=== PATIENT | male | born 1950 | race African-American/Black ===

== ENCOUNTER 2018-03-18 01:03 | Inpatient (IN) | payer MEDICARE, BC, MEDICAID ==
--- NOTE | 2018-03-18 01:09 | ED Physician Chart ---
ED Chief Complaint/HPI - Patient Information Date Seen:: 03/18/18 Time Seen:: 01:09 Chief Complaint:: Pneumonia History of Present Illness:: 67 yo male was brought from [facility] to ER for evaluation of cough for 1 day. His CXR on 03/17/18 showed increased density in the right lung base. Patient had history of stroke and has a tracheostomy tube to T bar. ED Review of Systems - Review of Systems General/Constitutional: No fever Skin: No bruising Head: No headache Eyes: No pain ENT: No nasal drainage Neck: Neck pain, No swelling, Other (tracheostomy tube) Cardio Vascular: No palpitations Pulmonary: SOB, Cough GI: No nausea, No vomiting Musculoskeletal: Other (atrophy) Neurological: Focal symptoms, Weakness ED Past Medical History - Past Medical History Past Medical History: HTN, DM, CVA/TIA, Dyslipidemia, Other (RESPIRATORY FAILURE , ESBL UTI, DYSPHAGIA) Social History: Non Smoker, No Alcohol, No Drug Use Surgical History: PEG/GTube, other (Tracheostomy tube) Family Medical History - Family Member Mother History Unknown: Yes ED Physical Exam - Physical Examination General/Constitutional: Awake Head: Atraumatic Eyes: PERRL Skin: No ecchymosis ENMT: Nasal exam nl Other Neck comments:: Trach tube intact Other Respiratory comments:: RLL crackles Cardio Vascular: RRR, No murmur, gallop, rubs, NL S1 S2 Other GI comments:: G-tube intact Other Extremities comments:: Contractures of upper and lower extremities Other Neuro/Psych comments:: Unable to follow command ED Labs/Radiology/EKG Results - Radiology Results Results: CXR: diffuse interstitial infiltrates, right greater than left ED Assessment - Assessment General Assessment: Acute on chronic respiratory failure Pneumonia UTI Leukocytosis Hyponatremia Normocytic anemia Pre-renal azotemia Metabolic alkalosis Assessment/Comments:: CBC, CMP, UA CXR and EKG NS 1L IV bolus Rocephin IV Azithromycin IV Breathing treatment Admit to telemetry ED Septic Shock - . Is Septic Shock (SBP<90, OR Lactate>4 mmol\L) present?: No ED Reassessment (Disposition) - Reassessment Reassessment Condition:: Improved - Patient Disposition Discharge/Transfer:: Acute Care w/in this hosp Admitting Medical Physician:: Lilli Rogers
[2018-03-18 01:28] LABS: pH 7.48 (7.35-7.45)
[2018-03-18 01:29] LABS: ALLEN TEST Positive
[2018-03-18 01:50] LABS: URINE MICROSCOPIC INDICATED? YES; URINE SOURCE CATH
[2018-03-18 01:55] LABS: HEMATOCRIT 35.3 % (41.0-60); HEMOGLOBIN 11.9 gm/dL (12-16); MEAN CELL VOLUME 84.9 fl (80-99); MEAN CORPUSCULAR HEMOGLOBIN 28.6 pg (27.0-31.0); MEAN CORPUSCULAR HGB CONC 33.6 pg (28.0-36.0); MEAN PLATELET VOLUME 9.6 fl; PLATELET COUNT 263 Th/cmm (150-400); RED BLOOD COUNT 4.16 Mil/cmm (3.80-5.80); RED CELL DISTRIBUTION WIDTH 16.2 % (11.5-20.0)
[2018-03-18 02:02] LABS: WHITE BLOOD COUNT 15.2 Th/cmm (4.8-10.8)
[2018-03-18 02:05] LABS: URINE BILIRUBIN NEGATIVE (NEGATIVE); URINE BLOOD NEGATIVE (NEGATIVE); URINE GLUCOSE (UA) NEGATIVE (NEGATIVE); URINE KETONE NEGATIVE (NEGATIVE); URINE LEUKOCYTE ESTERASE SMALL (NEGATIVE); URINE NITRATE NEGATIVE (NEGATIVE); URINE PH 7.5 (4.6 - 8.0); URINE PROTEIN 100 mg/dL (NEGATIVE); URINE UROBILINOGEN 0.2 E.U./dL (0.2 - 1.0)
[2018-03-18] MEDS ORDERED: Sodium Chloride 0.9% 1,000 ML IV ONE ×2 (02:05→03:15)
[2018-03-18 02:14] LABS: ALB/GLOB RATIO 0.9 (1.0-1.8); ALBUMIN 3.6 gm/dL (4.2-5.5); ANION GAP 17.2 (7.0-16.0); BILIRUBIN,TOTAL 0.5 mg/dL (0.3-1.0); CALCIUM SERUM 9.6 mg/dL (8.6-10.3); CARBON DIOXIDE 22.9 mEq/L (21.0-31.0); CREATININE - SERUM 2.1 mg/dL (0.7-1.3); GFR AFRICAN-AMERICAN 40.5 ml/min (>90); GFR NON AFRICAN-AMERICAN 33.4 ml/min; POTASSIUM SERUM 5.1 mEq/L (3.5-5.1); TOTAL PROTEIN,SERUM 7.6 gm/dL (6.0-8.3)
[2018-03-18 02:15] LABS: URINE CLARITY HAZY (CLEAR); URINE COLOR YELLOW
[2018-03-18 02:16] LABS: URINE BACTERIA MODERATE /hpf (NONE SEEN); URINE EPITHELIAL CELLS RARE /lpf (FEW); URINE RBC 0-2 /hpf (0-5)
[2018-03-18] MEDS ORDERED: Azithromycin 500 MG in Sodium Chloride 0.9% 250 ML IV ONE (02:30)
[2018-03-18] MEDS ORDERED: cefTRIAXone 1 GM in Sodium Chloride 0.9% 50 ML IV ONE (02:30)
[2018-03-18] MEDS ORDERED: Sodium Chloride 0.9% 500 ML IV ONE ×3 (03:15→18:30)
[2018-03-18 04:16] LABS: BAND NEUTROPHILE 39 % (0-10); LYMPHOCYTE 11 % (20-50); MONOCYTE 4 % (2-10); NEUTROPHILS 46 % (40-80); PLATELET ESTIMATE ADEQUATE (NORMAL)
[2018-03-18 05:21] LABS: MEAN PLATELET VOLUME 9.2 fl
[2018-03-18 05:23] LABS: MEAN CELL VOLUME 85.6 fl (80-99); MEAN CORPUSCULAR HEMOGLOBIN 29.1 pg (27.0-31.0); PLATELET COUNT 243 Th/cmm (150-400); RED BLOOD COUNT 3.44 Mil/cmm (3.80-5.80); RED CELL DISTRIBUTION WIDTH 15.7 % (11.5-20.0)
[2018-03-18 05:26] LABS: WHITE BLOOD COUNT 15.9 Th/cmm (4.8-10.8)
[2018-03-18 05:54] LABS: ANION GAP 14.4 (7.0-16.0); CALCIUM SERUM 8.6 mg/dL (8.6-10.3); CREATININE - SERUM 1.7 mg/dL (0.7-1.3); GFR AFRICAN-AMERICAN 51.7 ml/min (>90); GFR NON AFRICAN-AMERICAN 42.7 ml/min; POTASSIUM SERUM 4.4 mEq/L (3.5-5.1)
[2018-03-18 05:59] LABS: BAND NEUTROPHILE 37 % (0-10); LYMPHOCYTE 6 % (20-50); MONOCYTE 3 % (2-10); NEUTROPHILS 54 % (40-80)
[2018-03-18 06:00] LABS: HEMATOCRIT 29.5 % (41.0-60)
[2018-03-18] MEDS ORDERED: Ipratropium Neb 0.5 mg/2.5 mL UD HHN PRN (07:56)
[2018-03-18] MEDS ORDERED: Albuterol Nebulizer 2.5mg/3mL HHN PRN (07:56)
--- NOTE | 2018-03-18 08:29 | Diagnostic Imaging Report ---
CHEST X-RAY: AP view INDICATION: Shortness of breath COMPARISON: None FINDINGS: Tracheostomy tube is noted. Diffuse interstitial infiltrates are noted right greater than left. Heart size is normal. No pleural effusions. Atherosclerosis is noted. The osseous structures are intact. IMPRESSION: Diffuse interstitial infiltrates, right greater than left. Follow-up recommended. Atherosclerotic vascular disease.
[2018-03-18 08:31] VITALS: BP 118/60
[2018-03-18] MEDS: Multivitamin w/ Minerals Tab GT SCH (10:39)
[2018-03-18] MEDS: Pantoprazole 40 mg EC Tab PO SCH (10:41)
[2018-03-18] MEDS: Prednisolone 1% Ophth Susp 5 mL Bottle EACH EYE SCH ×4 (10:42→21:33)
[2018-03-18] MEDS: INSULIN ASPART SLIDING SCALE 100 UNITS/ML UNIT SUBQ SCH ×2 (12:32→17:43)
[2018-03-18] MEDS: Albuterol Nebulizer 2.5mg/3mL HHN SCH ×2 (12:59→18:38)
[2018-03-18] MEDS: Ipratropium Neb 0.5 mg/2.5 mL UD HHN SCH ×2 (12:59→18:38)
[2018-03-18] MEDS: Levofloxacin 750mg/150mL 750 MG/150 ML BAG IV SCH (16:23)
--- NOTE | 2018-03-18 17:38 | History & Physical ---
ADMIT DATE: 03/18/2018 The patient is a resident of [facility]. Apparently, the patient was short of breath. The patient is status post trach and PEG and the chest x-ray showed bilateral infiltrates and the patient was referred to [facility]. The patient had an x-ray done, showed a possible right lower lung base infiltrate, was given antibiotic, was admitted for pneumonia and respiratory distress. PAST MEDICAL HISTORY: As noted above. History of status post trach and PEG. REVIEW OF SYSTEMS: The patient's system review difficult to obtain. MEDICATIONS: See the reconciliation sheet and the patient was on multiple medications before including albuterol, baclofen and insulin. The patient is known to have diabetes and the patient is also on prednisone. PHYSICAL EXAMINATION: HEAD: Normal. ENT: Normal. NECK: Supple. LUNGS: Bilateral rales. CARDIOVASCULAR SYSTEM: S1, S2 heard. ABDOMEN: Soft. Bowel sounds are heard. CENTRAL NERVOUS SYSTEM: Decreased sensorium. DIAGNOSES: Right lower lobe pneumonia, bilateral infiltrates, status post trach, status post PEG, history of diabetes, history of asthma, history of bronchitis and history of . PLAN: The patient is being admitted. The patient will continue antibiotic. I have Dr. Jarek Candelaria, ID consult, and Pulmonary consult and I will follow the patient. JOB# [id number]
--- NOTE | 2018-03-18 20:42 | Consultation ---
DATE OF CONSULTATION: 03/18/2018 INFECTIOUS DISEASE CONSULTATION REFERRING PHYSICIAN: Dr. Rogers. REASON FOR CONSULTATION: Pneumonia. HISTORY OF PRESENT ILLNESS: The patient is a 67-year-old male with a past medical history of respiratory insufficiency on T-bar oxygen, history of UTI, history of ESBL E. coli urine infection, diabetes mellitus type 2, CVA, hypertension, aspiration pneumonia, hyperlipidemia, interstitial lung disease, developed cough. On the further evaluation at the nursing facility showed increased new right lower lobe density consistent with pneumonia. The patient was transferred to the Hospital ER for further evaluation and management. On initial evaluation, the patient's temperature is 98 degrees Fahrenheit and WBC count was 15,200. The patient is unable to give any history because of mental status, history is taken from the chart and [facility] facility records. PAST MEDICAL HISTORY: Includes as mentioned above, respiratory failure, antibiotic aspiration pneumonia, UTI, history of ESBL positive urine infection, diabetes mellitus type 2, CVA, hypertension and hyperlipidemia. MEDICATIONS: As per medication reconciliation sheet. Antibiotic quintana, the patient is receiving Rocephin and Zithromax. SOCIAL HISTORY: The patient lives at nursing facility. No history of smoking, alcohol or drug use. FAMILY HISTORY: Not available. REVIEW OF SYSTEMS: The patient unable to give any history, but so far the patient has no fever, although the patient had a cough. PHYSICAL EXAMINATION: GENERAL: The patient is comfortable lying in the bed, not in acute distress, on the T-bar oxygen. HEENT: Head is normocephalic, atraumatic. Oral cavity moist, pink tongue. Eyes: Pallor is present, no icterus. Pupils PERRLA, EOMI. NECK: Supple. No JVD. Trach site is clear. CHEST: Bilateral breath sounds. No crackles or wheezing. HEART: S1, S2 within normal limits. Regular rhythm. No murmur, no gallop. ABDOMEN: Soft, nontender, nondistended. Bowel sounds present. HEART: S1, S2 within normal. Regular rhythm. No murmurs. ABDOMEN: Soft, nontender, nondistended. Bowel sounds present. G-tube site is clear. EXTREMITIES: No cyanosis, no clubbing, no edema. NEUROLOGIC: Arousable, but unable to communicate. LABORATORY DATA: Current lab shows WBC count 15,900, hemoglobin 10, hematocrit 29.5 and platelets are 243,000. Neutrophil 54% and bands are 37%. Sodium 132, potassium 4.4, chloride 100, bicarbonate is 22, BUN is 53, creatinine 1.7 and glucose is 137. Lactic acid was 3.38, now 1.65. LFTs are reviewed. Urinalysis showed hazy yellow urine with moderate bacteria, wbc's 2-5. Chest x-ray showed diffuse interstitial infiltrate, right greater than left. IMPRESSION: 1. Sepsis. 2. Pneumonia, most likely healthcare facility associated pneumonia. 3. Urinary tract infection. 4. Respiratory failure, on T-bar oxygen. 5. Diabetes mellitus type 2. 6. Hypertension. 7. Dysphagia, G-tube placement. 8. Osteoarthritis. 9. Dementia. 10. History of cerebrovascular accident. 11. History of C. diff colitis. 12. Neurogenic bladder with a chronic Beard catheter 13. 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 RECOMMENDATIONS: We will start the patient on Zosyn. Discontinue Rocephin and start Levaquin. We will put under contact isolation as the patient is harboring multiple multidrug resistant organisms. Thank you, Dr. Rogers for involving me in taking care of this patient. More than 90 minutes spent on this patient. JOB# [id number]
[2018-03-19] MEDS: Albuterol Nebulizer 2.5mg/3mL HHN SCH ×2 (00:25→07:00)
[2018-03-19] MEDS: Ipratropium Neb 0.5 mg/2.5 mL UD HHN SCH ×2 (00:25→06:59)
[2018-03-19] MEDS: INSULIN ASPART SLIDING SCALE 100 UNITS/ML UNIT SUBQ SCH ×4 (01:08→19:00)
--- NOTE | 2018-03-19 05:05 | Consultation ---
DATE OF CONSULTATION: 03/18/2018 REFERRING PHYSICIAN: Lizzy Rogers M.D. Thank you very much Dr. Rogers for this consultation. HISTORY OF PRESENT ILLNESS: This is a 67-year-old male with history of chronic respiratory failure, tracheostomy tube and T-bar and G-tube feeding, who presented with sepsis, pneumonia and copious amount of secretions. The patient apparently was recently treated for pneumonia, again sepsis. The patient's blood pressures improved. Lactic acid was high. He received a couple of boluses. OTHER PAST MEDICAL HISTORY: I am not sure if the patient has any dementia or CVA. It seems like his response level is very poor. No other history is available. REVIEW OF SYSTEMS: Unable to obtain because of the patient's condition. PHYSICAL EXAMINATION: GENERAL: The patient is on a trach collar. No distress. VITAL SIGNS: Temperature 98.7, pulse 81, respirations 20, blood pressure 116/68, saturation 100%. HEENT: Atraumatic, normocephalic. Pupils are equal to light and accommodation. Ears, nose, and throat normal. NECK: Supple. No JVD. CHEST: Rhonchi in bases, fair entry bilaterally. HEART: Regular rate and rhythm. ABDOMEN: Soft. EXTREMITIES: No edema. Tracheostomy seems to be a very small size, I am not sure why. OTHER LABORATORY DATA: WBC is 15.9, hemoglobin 10.0, hematocrit 29.5, platelets 243. ABGs: pH 7.48, PCO2 of 41, PO2 of 89, bicarb 29, saturation 97%. Sodium 132, potassium 4.4, BUN is 53, creatinine 1.7. The chest x-ray shows infiltrate in right lower lobe area and small in the left lower lobe area. IMPRESSION: This is a 67-year-old male with: 1. Fszmo-om-tenublw respiratory failure. 2. Pneumonia. 3. Sepsis. 4. Weakness. 5. Dysphagia. PLAN: 1. IV antibiotics. 2. Nebulizer treatment. 3. Sputum culture. 4. Pulmonary toilet. 5. Followup chest x-ray and labs. 6. Nebulizer treatment, pulmonary toilet and at one point trach may need to be evaluated to be revised. Thank you very much for this consultation. We will follow the patient with you. JOB# [id number]
[2018-03-19 06:35] LABS: HEMATOCRIT 25.6 % (41.0-60); HEMOGLOBIN 8.6 gm/dL (12-16); MEAN CELL VOLUME 85.1 fl (80-99); MEAN CORPUSCULAR HEMOGLOBIN 28.7 pg (27.0-31.0); MEAN CORPUSCULAR HGB CONC 33.7 pg (28.0-36.0); MEAN PLATELET VOLUME 9.5 fl; PLATELET COUNT 223 Th/cmm (150-400); RED BLOOD COUNT 3.01 Mil/cmm (3.80-5.80); RED CELL DISTRIBUTION WIDTH 15.8 % (11.5-20.0); WHITE BLOOD COUNT 10.7 Th/cmm (4.8-10.8)
[2018-03-19 06:36] LABS: ANION GAP 10.9 (7.0-16.0); BUN - UREA NITROGEN 32 mg/dL (7-25); CHLORIDE 105 mEq/L (98-107); CREATININE - SERUM 1.2 mg/dL (0.7-1.3); GFR AFRICAN-AMERICAN > 60.0 ml/min (>90); GFR NON AFRICAN-AMERICAN > 60.0 ml/min; GLUCOSE 91 mg/dL (70-105); POTASSIUM SERUM 3.9 mEq/L (3.5-5.1); SODIUM SERUM 136 mEq/L (136-145)
[2018-03-19 08:49] LABS: BAND NEUTROPHILE 7 % (0-10); BASOPHIL 0 % (0-3); EOSINOPHIL 0 % (0-5); LYMPHOCYTE 8 % (20-50); MONOCYTE 3 % (2-10); NEUTROPHILS 82 % (40-80)
[2018-03-19] MEDS ORDERED: cefTRIAXone 1 GM in Sodium Chloride 0.9% 50 ML IV SCH (09:00)
[2018-03-19] MEDS ORDERED: Azithromycin 500 MG in Sodium Chloride 0.9% 250 ML IV SCH (09:00)
[2018-03-19] MEDS ORDERED: Albuterol/Ipratropium Neb 3 ML AERS HHN PRN (09:19)
[2018-03-19] MEDS: Multivitamin w/ Minerals Tab GT SCH (09:48)
[2018-03-19] MEDS: Pantoprazole 40 mg EC Tab PO SCH (09:49)
[2018-03-19] MEDS: Prednisolone 1% Ophth Susp 5 mL Bottle EACH EYE SCH ×4 (10:27→20:58)
--- NOTE | 2018-03-19 11:02 | Diagnostic Imaging Report ---
Renal ultrasound HISTORY: Abnormal renal function test Exam is limited and technically difficult due to patient contracture and unresponsiveness. The right kidney appears to be normal in size (11.8 x 4.5 x 4.3 cm). No focal lesions. No hydronephrosis. Suboptimal delineation the left kidney but appears to be normal in size (10.9 x 4.9 x 5.8 cm). No focal lesions. No hydronephrosis. No definite intraluminal abnormality seen within the urinary bladder. IMPRESSION: 1. Limited exam due to patient contracture and difficulty in cooperation and mobility. 2. No focal renal lesions or hydronephrosis
--- NOTE | 2018-03-19 12:29 | General Progress Note ---
Subjective - Review of Systems Events since last encounter: patient with sepsis pneumonia, vent dependent eyes open no signs of discomfort Objective - Results Result Diagrams: 03/19/18 05:40 03/19/18 05:40 Recent Labs: Laboratory Last Values WBC 10.7 Th/cmm (4.8-10.8) 03/19/18 05:40 RBC 3.01 Mil/cmm (3.80-5.80) L 03/19/18 05:40 Hgb 8.6 gm/dL (12-16) L 03/19/18 05:40 Hct 25.6 % (41.0-60) L 03/19/18 05:40 MCV 85.1 fl (80-99) 03/19/18 05:40 MCH 28.7 pg (27.0-31.0) 03/19/18 05:40 MCHC Differential 33.7 pg (28.0-36.0) 03/19/18 05:40 RDW 15.8 % (11.5-20.0) 03/19/18 05:40 Plt Count 223 Th/cmm (150-400) 03/19/18 05:40 MPV 9.5 fl 03/19/18 05:40 Add Manual Diff YES 03/19/18 05:40 Band Neutrophils % 7 % (0-10) 03/19/18 05:40 Neutrophils (Manual) 82 % (40-80) H 03/19/18 05:40 Lymphocytes 8 % (20-50) L 03/19/18 05:40 Monocytes 3 % (2-10) 03/19/18 05:40 Eosinophils 0 % (0-5) 03/19/18 05:40 Basophils 0 % (0-3) 03/19/18 05:40 Platelet Estimate ADEQUATE (NORMAL) 03/18/18 01:45 Specimen Source ARTERIAL 03/18/18 01:11 Sample Site LB 03/18/18 01:11 pH 7.48 (7.35-7.45) H 03/18/18 01:11 pCO2 41.0 mmHg (35.0-45.0) 03/18/18 01:11 pO2 89.0 mmHg (80.0-100.0) 03/18/18 01:11 HCO3 29.9 mEq/L (20.0-26.0) H 03/18/18 01:11 Base Excess 6.4 mEq/L (-3.0-3.0) H 03/18/18 01:11 O2 Saturation 97.0 % (92.0-100.0) 03/18/18 01:11 Angel Test Positive 03/18/18 01:11 Vent Rate N/A 03/18/18 01:11 Inspired O2 36 03/18/18 01:11 Tidal Volume N/A 03/18/18 01:11 PEEP N/A 03/18/18 01:11 Pressure (ins/psv/peep) N/A 03/18/18 01:11 Critical Value AB,LACE WINDER 03/18/18 01:11 Sodium 136 mEq/L (136-145) 03/19/18 05:40 Potassium 3.9 mEq/L (3.5-5.1) 03/19/18 05:40 Chloride 105 mEq/L (98-107) 03/19/18 05:40 Carbon Dioxide 24.0 mEq/L (21.0-31.0) 03/19/18 05:40 Anion Gap 10.9 (7.0-16.0) 03/19/18 05:40 BUN 32 mg/dL (7-25) H 03/19/18 05:40 Creatinine 1.2 mg/dL (0.7-1.3) 03/19/18 05:40 Est GFR ( Amer) > 60.0 ml/min (>90) 03/19/18 05:40 Est GFR (Non-Af Amer) > 60.0 ml/min 03/19/18 05:40 BUN/Creatinine Ratio 26.7 03/19/18 05:40 Glucose 91 mg/dL (70-105) 03/19/18 05:40 POC Glucose 89 MG/DL (70 - 105) 03/19/18 05:38 Whole Bld Lactic Acid 1.65 mmol/L (0.60-1.99) 03/18/18 05:10 Calcium 9.0 mg/dL (8.6-10.3) 03/19/18 05:40 Total Bilirubin 0.5 mg/dL (0.3-1.0) 03/18/18 01:45 AST 20 U/L (13-39) 03/18/18 01:45 ALT 16 U/L (7-52) 03/18/18 01:45 Alkaline Phosphatase 60 U/L (34-104) 03/18/18 01:45 Troponin I 0.03 ng/mL (0.01-0.05) 03/18/18 01:45 B-Natriuretic Peptide 302.0 pg/mL (5.0-100.0) H 03/18/18 01:45 Total Protein 7.6 gm/dL (6.0-8.3) 03/18/18 01:45 Albumin 3.6 gm/dL (4.2-5.5) L 03/18/18 01:45 Globulin 4.0 gm/dL 03/18/18 01:45 Albumin/Globulin Ratio 0.9 (1.0-1.8) L 03/18/18 01:45 Triglycerides 124 mg/dL (<150) 03/18/18 05:10 Cholesterol 98 mg/dL (<200) 03/18/18 05:10 LDL Cholesterol Direct 59 mg/dL (75-193) L 03/18/18 05:10 HDL Cholesterol 23 mg/dL (23-92) 03/18/18 05:10 TSH 1.88 uIU/ml (0.34-5.60) 03/18/18 05:10 Urine Source CATH 03/18/18 01:30 Urine Color YELLOW 03/18/18 01:30 Urine Clarity HAZY (CLEAR) 03/18/18 01:30 Urine pH 7.5 (4.6 - 8.0) 03/18/18 01:30 Ur Specific [place] <= 1.005 (1.005-1.030) 03/18/18 01:30 Urine Protein 100 mg/dL (NEGATIVE) H 03/18/18 01:30 Urine Glucose (UA) NEGATIVE mg/dL (NEGATIVE) 03/18/18 01:30 Urine Ketones NEGATIVE mg/dL (NEGATIVE) 03/18/18 01:30 Urine Blood NEGATIVE (NEGATIVE) 03/18/18 01:30 Urine Nitrate NEGATIVE (NEGATIVE) 03/18/18 01:30 Urine Bilirubin NEGATIVE (NEGATIVE) 03/18/18 01:30 Urine Urobilinogen 0.2 E.U./dL (0.2 - 1.0) 03/18/18 01:30 Ur Leukocyte Esterase SMALL (NEGATIVE) H 03/18/18 01:30 Urine RBC 0-2 /hpf (0-5) H 03/18/18 01:30 Urine WBC 2-5 /hpf (0-5) 03/18/18 01:30 Ur Epithelial Cells RARE /lpf (FEW) 03/18/18 01:30 Urine Bacteria MODERATE /hpf (NONE SEEN) H 03/18/18 01:30 - Physical Exam Vitals and I&O: Vital Signs Temp 98.7 F 03/19/18 11:31 Pulse 81 03/19/18 11:31 Resp 17 03/19/18 11:31 BP 119/62 03/19/18 11:31 Pulse Ox 99 03/19/18 11:31 Intake & Output 03/18/18 03/19/18 03/19/18 18:59 06:59 18:59 Intake Total 1480 Output Total 1850 Balance -370 Weight (lbs) 53.524 kg 53.524 kg 53.524 kg Intake: Intake, IV Amount 150 Piperacillin Sodium/ 150 Tazobact 3.375 gm In Sodium Chloride 0.9% 50 ml @ 100 mls/hr IV Q6HR [facility] Rx#:[id number] Tube Feeding 930 Other 400 Output: Urine 1850 Other: # Voids 2 # Bowel Movements 0 Weight Source Bedscale Bedscale Bedscale Active Medications: Current Medications Acetaminophen (Tylenol 650mg/20.3ml Suspension) 650 mg GT Q6HR PRN PRN Reason: Pain (Mild) Stop: 05/17/18 07:55 Albuterol/Ipratropium (Duoneb Neb) 3 ml HHN Q6HRT [facility] Stop: 05/18/18 12:59 Albuterol/Ipratropium (Duoneb Neb) 3 ml HHN Q2HRT PRN PRN Reason: Shortness of Breath Stop: 05/18/18 09:18 Baclofen (Lioresal) 5 mg GT DAILY [facility] Stop: 05/17/18 08:59 Last Admin: 03/19/18 09:47 Dose: 5 mg Docusate Sodium (Colace) 200 mg PO HS [facility] Stop: 05/17/18 20:59 Last Admin: 03/18/18 21:32 Dose: 200 mg Dorzolamide HCl (Trusopt 2% Ophth Soln) 1 drop EACH EYE BID [facility] Stop: 05/17/18 08:59 Last Admin: 03/19/18 10:27 Dose: 1 drop Folic Acid (Folate) 1 mg GT DAILY [facility] Stop: 05/17/18 08:59 Last Admin: 03/19/18 10:27 Dose: 1 mg Piperacillin Sod/Tazobactam (Sod 3.375 gm/ Sodium Chloride) 50 mls @ 100 mls/ hr IV Q6HR [facility] Stop: 05/17/18 17:59 Last Admin: 03/19/18 12:01 Dose: 100 mls/hr Levofloxacin (Levaquin Pb) 750 mg in 150 mls @ 100 mls/hr IV Q24HR [facility] Stop: 05/17/18 15:44 Last Admin: 03/18/18 16:23 Dose: 100 mls/hr Vancomycin HCl 1 gm/ Sodium (Chloride) 250 mls @ 165 mls/hr IV Q24H [facility] Stop: 05/18/18 08:59 Last Admin: 03/19/18 10:27 Dose: 165 mls/hr Insulin Aspart (Novolog Insulin Sliding Scale) 0 units SUBQ Q6HR [facility]; Protocol Stop: 05/17/18 11:59 Last Admin: 03/19/18 12:09 Dose: Not Given Levetiracetam (Keppra) 500 mg PO BID [facility] Stop: 05/17/18 08:59 Last Admin: 03/19/18 09:48 Dose: 500 mg Metoclopramide HCl (Reglan) 5 mg GT Q6HR [facility] Stop: 05/17/18 11:59 Last Admin: 03/19/18 12:09 Dose: 5 mg Metoprolol Tartrate (Lopressor) 25 mg GT BID [facility] Stop: 05/17/18 08:59 Last Admin: 03/19/18 09:48 Dose: 25 mg Miscellaneous (Vancomycin Iv Per Pharmacy) 1 ea MC PRN PRN PRN Reason: PROTOCOL Stop: 05/17/18 15:33 Pantoprazole Sodium (Protonix) 40 mg PO DAILY [facility] Stop: 05/17/18 08:59 Last Admin: 03/19/18 09:49 Dose: 40 mg Pneumococcal Polyvalent Vaccine (Pneumovax) 0.5 ml IM .ONCE ONE Stop: 03/21/18 17:01 Predn[facility]one Acetate [facility] 1 drop EACH EYE QID [facility] Stop: 05/17/18 08:59 Last Admin: 03/19/18 10:27 Dose: 1 drop Timolol Maleate (Timoptic 0.5% Ophth Soln) 1 drop EACH EYE BID [facility] Stop: 05/17/18 08:59 Last Admin: 03/19/18 10:27 Dose: 1 drop General: No acute distress HEENT: Atraumatic Cardiovascular: Regular rate, Normal S1, Normal S2 Lungs: Other (ronchil), no Clear to auscultation Assessment/Plan - Problem List Patient Problems: All Active Problems H/O bronchitis (Acute) Z87.09 H/O diabetes mellitus (Acute) Z86.39 Right lower lobe pneumonia (Acute) J18.1 S/P tracheoplasty (Acute) Z98.890 h/o asthma (Acute) - Plan Plan: cpm
[2018-03-19] MEDS: Albuterol/Ipratropium Neb 3 ML AERS HHN SCH ×2 (13:34→18:57)
[2018-03-19] MEDS: Levofloxacin 750mg/150mL 750 MG/150 ML BAG IV SCH (16:47)
[2018-03-20] MEDS: INSULIN ASPART SLIDING SCALE 100 UNITS/ML UNIT SUBQ SCH ×3 (00:20→13:08)
[2018-03-20] MEDS: Albuterol/Ipratropium Neb 3 ML AERS HHN SCH ×3 (00:53→13:47)
[2018-03-20 08:04] LABS: % BASOPHILS 0.2 % (0.0-2.0); % EOSINOPHILS 2.3 % (0.0-5.0); % LYMPHOCYTES 9.5 % (20.0-50.0); % MONOCYTES 7.9 % (2.0-10.0); % NEUTROPHILS 80.1 % (40.0-80.0); EOSINOPHILE ABSOLUTE 0.2 Th/cmm (0.1-0.4); HEMATOCRIT 27.6 % (41.0-60); HEMOGLOBIN 9.4 gm/dL (12-16); MEAN CELL VOLUME 85.2 fl (80-99); MEAN CORPUSCULAR HEMOGLOBIN 28.9 pg (27.0-31.0); MEAN CORPUSCULAR HGB CONC 33.9 pg (28.0-36.0); MEAN PLATELET VOLUME 8.7 fl; MONOCYTE ABSOLUTE 0.8 Th/cmm (0.3-1.0); NEUTROPHILE ABSOLUTE 8.1 Th/cmm (1.8-8.0); PLATELET COUNT 243 Th/cmm (150-400); RED BLOOD COUNT 3.23 Mil/cmm (3.80-5.80); RED CELL DISTRIBUTION WIDTH 15.5 % (11.5-20.0); WHITE BLOOD COUNT 10.1 Th/cmm (4.8-10.8)
[2018-03-20] MEDS ORDERED: VTE Chemical Prophylaxis Screen/Admission MC PRN (08:15)
[2018-03-20 08:21] LABS: ANION GAP 12.3 (7.0-16.0); BUN - UREA NITROGEN 20 mg/dL (7-25); CALCIUM SERUM 9.1 mg/dL (8.6-10.3); CARBON DIOXIDE 23.3 mEq/L (21.0-31.0); CHLORIDE 104 mEq/L (98-107); CREATININE - SERUM 1.1 mg/dL (0.7-1.3); GFR AFRICAN-AMERICAN > 60.0 ml/min (>90); GFR NON AFRICAN-AMERICAN > 60.0 ml/min; GLUCOSE 91 mg/dL (70-105); POTASSIUM SERUM 3.6 mEq/L (3.5-5.1); SODIUM SERUM 136 mEq/L (136-145)
[2018-03-20] MEDS ORDERED: Probiotic Screen MC PRN (08:30)
[2018-03-20] MEDS ORDERED: Lactobacillus Rhamnosus GG 15 Billion CFU CAP.SPRINK GT SCH (09:00)
[2018-03-20] MEDS: Multivitamin w/ Minerals Tab GT SCH (09:08)
[2018-03-20] MEDS: Prednisolone 1% Ophth Susp 5 mL Bottle EACH EYE SCH ×2 (09:09→13:23)
[2018-03-20] MEDS: Pantoprazole 40 mg EC Tab PO SCH (09:09)
[2018-03-21] MEDS ORDERED: Pneumococcal Vaccine 0.5 mL Vial IM ONE (17:00)
== END 2018-03-20 16:10 | DRG 871 ==
LOC: ER 01:03 → MSI 02:10
PROVIDERS: ADMIT Internal Medicine; ATTEND Internal Medicine
DX: A41.9 Sepsis, unspecified organism (principal); J96.20 Acute and chronic respiratory failure, unspecified whether with hypoxia or hypercapnia; J18.1 Lobar pneumonia, unspecified organism; N39.0 Urinary tract infection, site not specified; E87.1 Hypo-osmolality and hyponatremia; E11.9 Type 2 diabetes mellitus without complications; Z93.0 Tracheostomy status; Z93.1 Gastrostomy status; M19.90 Unspecified osteoarthritis, unspecified site; N31.9 Neuromuscular dysfunction of bladder, unspecified; F03.90 Unspecified dementia, unspecified severity, without behavioral disturbance, psychotic disturbance, mood disturbance, and anxiety; R13.10 Dysphagia, unspecified; I10 Essential (primary) hypertension; E78.5 Hyperlipidemia, unspecified; D64.9 Anemia, unspecified; J45.909 Unspecified asthma, uncomplicated; Z86.73 Personal history of transient ischemic attack (TIA), and cerebral infarction without residual deficits
CPT/HCPCS: 36415-UA; 36600-90; 71045-TC; 76770-TC; 80048-TC; 80053-TC; 80061-TC; 80202-TC; 81001-TC; 82803-TC; 82948-90; 83605; 83880-TC; 84443-TC; 84484-TC; 85007-TC; 85025-TC; 87086-90; 87449-90; 90779; 93005; 94640; 94760; J0456; J0696; J1644; J1815; J1956; J2543; J2650; J3370; J7030; J7040; J7613; Z7610

== ENCOUNTER 2018-04-18 19:29 | Inpatient (IN) | payer MEDICARE, BC, MEDICAID ==
[2018-04-18 19:59] LABS: HEMATOCRIT 35.1 % (41.0-60); HEMOGLOBIN 11.6 gm/dL (12-16); MEAN CELL VOLUME 86.9 fl (80-99); MEAN CORPUSCULAR HEMOGLOBIN 28.6 pg (27.0-31.0); MEAN PLATELET VOLUME 9.4 fl; PLATELET COUNT 283 Th/cmm (150-400); RED BLOOD COUNT 4.04 Mil/cmm (3.80-5.80); RED CELL DISTRIBUTION WIDTH 15.7 % (11.5-20.0)
[2018-04-18 20:04] LABS: INR 0.95 (0.5-1.4); PROTHROMBIN TIME (TEST) 9.9 SECONDS (9.5-11.5)
--- NOTE | 2018-04-18 20:04 | ED Physician Chart ---
ED Chief Complaint/HPI - Patient Information Date Seen:: 04/18/18 Time Seen:: 19:36 Chief Complaint:: chest congestion History of Present Illness:: this is a 67 yo male sent from a detention for an evaluation of his difficulty breathing with weakness and hypoxia. he has a trach in place and functioning well. he is non verbral. Allergies:: Allergies Allergy/AdvReac Type Severity Reaction Status Date / Time No Known Allergies Allergy Verified 03/18/18 01:18 Vitals:: Vital Signs - 8 hr 04/18/18 19:30 Temp 96.7 F HR 78 RR 16 BP 123/61 O2 Sat % 97 Historian:: EMS, Medical Records Review:: Nurse's Note Reviewed, Transfer documents Reviewed ED Review of Systems - Review of Systems General/Constitutional: No fever, No chills, No weight loss, No weakness, No diaphoresis, No edema, No loss of appetite, Other (THHIS PATIENT IS UNABLE TO GIVE A REVIEW OF SYSTEMS) Skin: No skin lesions, No rash, No bruising Head: No headache, No light-headedness Eyes: No loss of vision, No pain, No diplopia ENT: No earache, No nasal drainage, No sore throat, No tinnitus Neck: No neck pain, No swelling, No thyromegaly, No stiffness, No mass noted Cardio Vascular: No chest pain, No palpitations, No PND, No orthopnea, No edema Pulmonary: No SOB, No cough, No sputum, No wheezing GI: No nausea, No vomiting, No diarrhea, No pain, No melena, No hematochezia, No constipation, No hematemesis G/U: No dysuria, No frequency, No hematuria Musculoskeletal: No bone or joint pain, No back pain, No muscle pain Endocrine: No polyuria, No polydipsia Psychiatric: No prior psych history, No depression, No anxiety, No suicidal ideation Hematopoietic: No bruising, No lymphadenopathy Allergic/Immuno: No urticaria, No angioedema Neurological: No syncope, No focal symptoms, No weakness, No paresthesia, No headache, No seizure, No dizziness, No confusion, No vertigo ED Past Medical History - Past Medical History Obtainable: Yes Past Medical History: HTN, DM, CAD, CHF, Asthma/COPD, CVA/TIA, Arthritis, Dementia Family History: None Social History: Non Smoker, No Alcohol, No Drug Use, Care Facility Surgical History: other (TRACH PLACEMENT) Family Medical History - Family Member Mother History Unknown: Yes ED Physical Exam - Physical Examination General/Constitutional: Awake, Well-developed, well-nourished, Alert, No distress, GCS 15, Non-toxic appearing, Ambulatory Other Gen/Cons comments:: THIS PATIENT IS SEVERELY CONTRACTED AND CACHEXIC. THE PATIENT IS UNABLE TO SPEAK AND FOLLOW ON EXAMINATION. Head: Atraumatic Eyes: Lids, conjuctiva normal, PERRL, EOMI Skin: Nl inspection, No rash, No skin lesions, No ecchymosis, Well hydrated, No lymphadenopathy ENMT: External ears, nose nl, Nasal exam nl, Lips, teeth, gums nl Other ENMT comments:: TRACH NOTED AND FUNCTIONING WELL Neck: Nontender, Full ROM w/o pain, No JVD, No nuchal rigidity, No bruit, No mass, No stridor Respiratory: Nl effort/Exclusion, Clear to Auscultation, No Wheeze/Rhonchi/Rales Other Respiratory comments:: THE RESPIRATORY RATE IS 26 AND THERE ARE DECREASED BREATH SOUNDS IN THE RIGHT MIDDLE LOBE AREA. Cardio Vascular: RRR, No murmur, gallop, rubs, NL S1 S2 GI: No tenderness/rebounding/guarding, No organomegaly, No hernia, Normal BS's, Nondistended, No mass/bruits, No McBurney tenderness : No CVA tenderness Extremities: No tenderness or effusion, Full ROM, normal strength in all extremities, No edema, Normal digits & nails Other Extremities comments:: THERE IS SEVERE MUSCLE WASTING IN ALL FOUR EXTREMITIES AND NO EDEMA NOTED Neuro/Psych: Alert/oriented, DTR's symmetric, Normal sensory exam, Normal motor strength, Judgement/insight normal, Mood normal, Normal gait, No focal deficits Other Neuro/Psych comments:: ALL FOUR EXTREMITIES HAVE SPASTIC PARALYSIS FINDINGS Misc: Normal back, No paraspinal tenderness ED Labs/Radiology/EKG Results - Lab Results Results: Abnormal Lab Results 04/18/18 04/18/18 04/18/18 19:42 19:45 19:45 WBC RBC Hgb Hct MCV MCH MCHC Differential RDW Plt Count MPV Add Manual Diff Neutrophils % Band Neutrophils % Lymphocytes % Monocytes % Eosinophils % Basophils % Neutrophils (Manual) Lymphocytes Monocytes Eosinophils PT 9.9 INR 0.95 Specimen Source arterial Sample Site left brachial pH 7.42 pCO2 45.0 pO2 62.0 L HCO3 28.0 H Base Excess 4.1 H O2 Saturation 92.0 Angel Test yes Vent Rate n/a Inspired O2 21 Tidal Volume n/a PEEP n/a Pressure (ins/psv/peep) n/a Critical Value abroedel Sodium 136 Potassium 4.9 Chloride 96 L Carbon Dioxide 26.7 Anion Gap 18.2 H BUN 43 H Creatinine 1.3 Est GFR ( Amer) > 60.0 Est GFR (Non-Af Amer) 58.2 BUN/Creatinine Ratio 33.1 Glucose 155 H Whole Bld Lactic Acid Calcium 10.7 H Total Bilirubin 0.3 AST 19 ALT 17 Alkaline Phosphatase 72 Troponin I B-Natriuretic Peptide Total Protein 8.7 H Albumin 4.1 L Globulin 4.6 Albumin/Globulin Ratio 0.9 L TSH 04/18/18 04/18/18 04/18/18 19:45 19:45 19:45 WBC 17.1 H RBC 4.04 Hgb 11.6 L Hct 35.1 L MCV 86.9 MCH 28.6 MCHC Differential 33.0 RDW 15.7 Plt Count 283 MPV 9.4 Add Manual Diff YES Neutrophils % POSTAL MAIL CARRIER Band Neutrophils % 5 Lymphocytes % POSTAL MAIL CARRIER Monocytes % POSTAL MAIL CARRIER Eosinophils % POSTAL MAIL CARRIER Basophils % POSTAL MAIL CARRIER Neutrophils (Manual) 77 Lymphocytes 15 L Monocytes 2 Eosinophils 1 PT INR Specimen Source Sample Site pH pCO2 pO2 HCO3 Base Excess O2 Saturation Angel Test Vent Rate Inspired O2 Tidal Volume PEEP Pressure (ins/psv/peep) Critical Value Sodium Potassium Chloride Carbon Dioxide Anion Gap BUN Creatinine Est GFR ( Amer) Est GFR (Non-Af Amer) BUN/Creatinine Ratio Glucose Whole Bld Lactic Acid Calcium Total Bilirubin AST ALT Alkaline Phosphatase Troponin I 0.03 B-Natriuretic Peptide Total Protein Albumin Globulin Albumin/Globulin Ratio TSH 4.06 18 04/18/18 19:45 19:45 WBC RBC Hgb Hct MCV MCH MCHC Differential RDW Plt Count MPV Add Manual Diff Neutrophils % Band Neutrophils % Lymphocytes % Monocytes % Eosinophils % Basophils % Neutrophils (Manual) Lymphocytes Monocytes Eosinophils PT INR Specimen Source Sample Site pH pCO2 pO2 HCO3 Base Excess O2 Saturation Angel Test Vent Rate Inspired O2 Tidal Volume PEEP Pressure (ins/psv/peep) Critical Value Sodium Potassium Chloride Carbon Dioxide Anion Gap BUN Creatinine Est GFR ( Amer) Est GFR (Non-Af Amer) BUN/Creatinine Ratio Glucose Whole Bld Lactic Acid 2.05 H* Calcium Total Bilirubin AST ALT Alkaline Phosphatase Troponin I B-Natriuretic Peptide 230.0 H Total Protein Albumin Globulin Albumin/Globulin Ratio TSH - Radiology Results Results: CHEST X-RAY = RIGHT MIDDLE LOBE PNEUMONIA - EKG Interpretations EKG Time:: 21:52 Rate & Rhythm: 83 , sinus Hendricks: right Intervals: no ectopy seen ED Assessment - Assessment General Assessment: RIGHT MIDDLE LOBE PNEUMONIA ED Septic Shock - . Is Septic Shock (SBP<90, OR Lactate>4 mmol\L) present?: No - <6hrs of presentation: Vital Signs: Vital Signs - 8 hr //18 19:30 Temp 96.7 F HR 78 RR 16 BP 123/61 O2 Sat % 97 ED Reassessment (Disposition) - Reassessment Reassessment Condition:: Improved - Diagnosis Diagnosis:: PNEUMONIA CACHEXIA - Patient Disposition Discharge/Transfer:: Acute Care w/in this hosp Admitted to:: ICU Admitting Medical Physician:: Lilli Rogers Condition at Disposition:: Improved
[2018-04-18 20:07] LABS: WHITE BLOOD COUNT 17.1 Th/cmm (4.8-10.8)
[2018-04-18 20:11] LABS: ALB/GLOB RATIO 0.9 (1.0-1.8); ALBUMIN 4.1 gm/dL (4.2-5.5); ALKALINE PHOSPHATASE 72 U/L (34-104); ANION GAP 18.2 (7.0-16.0); BILIRUBIN,TOTAL 0.3 mg/dL (0.3-1.0); BUN - UREA NITROGEN 43 mg/dL (7-25); CALCIUM SERUM 10.7 mg/dL (8.6-10.3); CARBON DIOXIDE 26.7 mEq/L (21.0-31.0); CHLORIDE 96 mEq/L (98-107); CREATININE - SERUM 1.3 mg/dL (0.7-1.3); GFR AFRICAN-AMERICAN > 60.0 ml/min (>90); GFR NON AFRICAN-AMERICAN 58.2 ml/min; GLUCOSE 155 mg/dL (70-105); POTASSIUM SERUM 4.9 mEq/L (3.5-5.1); SGOT 19 U/L (13-39); SGPT/ALT 17 U/L (7-52); SODIUM SERUM 136 mEq/L (136-145); TOTAL PROTEIN,SERUM 8.7 gm/dL (6.0-8.3)
[2018-04-18 20:14] LABS: BAND NEUTROPHILE 5 % (0-10); EOSINOPHIL 1 % (0-5); LYMPHOCYTE 15 % (20-50); MONOCYTE 2 % (2-10); NEUTROPHILS 77 % (40-80)
[2018-04-18] MEDS ORDERED: cefTRIAXone 1 GM in Sodium Chloride 0.9% 50 ML IV ONE (20:25)
[2018-04-18] MEDS ORDERED: Sodium Chloride 0.9% 1,000 ML IV ONE (20:33)
[2018-04-18] MEDS ORDERED: Azithromycin 500 MG in Sodium Chloride 0.9% 250 ML IV ONE (20:49)
[2018-04-18 21:18] LABS: pH 7.42 (7.35-7.45)
[2018-04-18 21:19] LABS: ALLEN TEST yes
[2018-04-19] MEDS: INSULIN ASPART SLIDING SCALE 100 UNITS/ML UNIT SUBQ SCH ×5 (01:00→23:40)
[2018-04-19 04:27] LABS: HEMATOCRIT 28.7 % (41.0-60); HEMOGLOBIN 9.7 gm/dL (12-16); MEAN CELL VOLUME 87.6 fl (80-99); MEAN CORPUSCULAR HEMOGLOBIN 29.7 pg (27.0-31.0); MEAN CORPUSCULAR HGB CONC 33.9 pg (28.0-36.0); MEAN PLATELET VOLUME 8.7 fl; PLATELET COUNT 305 Th/cmm (150-400); RED BLOOD COUNT 3.28 Mil/cmm (3.80-5.80)
[2018-04-19 04:40] LABS: WHITE BLOOD COUNT 22.1 Th/cmm (4.8-10.8)
[2018-04-19 04:56] LABS: ANION GAP 14.3 (7.0-16.0); BUN - UREA NITROGEN 42 mg/dL (7-25); CALCIUM SERUM 9.5 mg/dL (8.6-10.3); CARBON DIOXIDE 24.9 mEq/L (21.0-31.0); CHLORIDE 101 mEq/L (98-107); CREATININE - SERUM 1.1 mg/dL (0.7-1.3); GFR AFRICAN-AMERICAN > 60.0 ml/min (>90); GFR NON AFRICAN-AMERICAN > 60.0 ml/min; GLUCOSE 148 mg/dL (70-105); POTASSIUM SERUM 4.2 mEq/L (3.5-5.1); SODIUM SERUM 136 mEq/L (136-145)
[2018-04-19 05:18] LABS: BAND NEUTROPHILE 2 % (0-10); LYMPHOCYTE 4 % (20-50); MONOCYTE 4 % (2-10); NEUTROPHILS 90 % (40-80)
[2018-04-19 05:19] LABS: PLATELET ESTIMATE ADEQUATE (NORMAL)
[2018-04-19] MEDS ORDERED: Albuterol/Ipratropium Neb 3 ML AERS HHN PRN (08:49)
[2018-04-19] MEDS ORDERED: METOCLOPRAMIDE HCL 5 MG GT SCH (09:00)
[2018-04-19] MEDS ORDERED: Non-Formulary Item 1 EA (Lactobacillus Acidophilus [Acidophilus] 1 EACH) GT SCH (09:00)
[2018-04-19] MEDS ORDERED: Albuterol/Ipratropium Neb 3 ML AERS HHN ONE (09:01)
[2018-04-19] MEDS: Albuterol/Ipratropium Neb 3 ML AERS HHN SCH ×2 (09:05→19:30)
--- NOTE | 2018-04-19 09:41 | Diagnostic Imaging Report ---
CHEST X-RAY: AP view INDICATION: Cough COMPARISON: 03/18/2018 FINDINGS: Increased interstitial lung markings are noted greatest within the lung bases. No focal consolidation or effusions. Heart size is normal. No pneumothorax. Tracheostomy tube is stable. Degenerative changes of the spine and shoulders. IMPRESSION: Increased interstitial lung markings suggestive of chronic lung changes, however, superimposed interstitial infiltrates cannot be excluded. Probable COPD.
[2018-04-19] MEDS: Levetiracetam 500 mg/5mL 5mL UDSyr *for ORAL USE ONLY GT SCH ×2 (09:45→17:45)
[2018-04-19] MEDS: Meropenem 1 GM in Sodium Chloride 0.9% 100 ML IV SCH ×2 (11:54→21:00)
[2018-04-19 14:46] LABS: URINE SOURCE MIDSTREAM
[2018-04-19 14:57] LABS: URINE CLARITY HAZY (CLEAR); URINE COLOR YELLOW; URINE MICROSCOPIC INDICATED? YES
[2018-04-19 14:58] LABS: URINE BILIRUBIN NEGATIVE (NEGATIVE); URINE BLOOD NEGATIVE (NEGATIVE); URINE GLUCOSE (UA) NEGATIVE (NEGATIVE); URINE KETONE TRACE mg/dL (NEGATIVE); URINE LEUKOCYTE ESTERASE MODERATE (NEGATIVE)
[2018-04-19 14:59] LABS: URINE NITRATE NEGATIVE (NEGATIVE); URINE PROTEIN 100 mg/dL (NEGATIVE); URINE RBC 0-2 /hpf (0-5); URINE UROBILINOGEN 0.2 E.U./dL (0.2 - 1.0)
[2018-04-19 15:00] LABS: URINE BACTERIA FEW /hpf (NONE SEEN); URINE EPITHELIAL CELLS FEW /lpf (FEW); URINE WBC 25-50 /hpf (0-5); URINE YEAST FEW /hpf (NONE SEEN)
--- NOTE | 2018-04-19 18:19 | Consultation ---
Consult Note - Consult Note Service Date: 04/19/18 Referring Physician: Lilli Rogers Consult Note: PHYSICIAN Consultation Note: Date of Admission: 04/18/18 Purpose of Consultation: Leukocytosis, sepsis. Chief Complaint: Patient HEATHER DE LA ROSA was admitted to location Intensive Care Unit with PNEUMONIA. History of Present Illness: 59-year-old male with with a past medical history of respiratory insufficiency on T bar oxygen, history of UTI, history of ESBL Escherichia coli urine infection, diabetes mellitus type 2, CVA, hypertension, aspiration pneumonia, hyperlipidemia, interstitial lung disease, developed hypoxia and generalized weakness, so he was sent to the ER for further evaluation and management. Patient is unable to communicate aphasic. Also he is alert and awake. On initial evaluation, his temperature is 97.6F and WBC count was 17,100. Chest is is suggested chronic interest or lung disease but superimposed intestinal infiltrates could not be excluded. Urinalysis showed pyuria and bacteriuria. He was started on Rocephin and Zithromax. As patient had history of ESBL Escherichia coli infection in the past and went up to 22,000. ID consult was called and and antibiotics were changed to meropenem and Zithromax patient remains afebrile.. Past Medical History: respiratory insufficiency on T bar oxygen, history of UTI , history of ESBL Escherichia coli urine infection, diabetes mellitus type 2, CVA, hypertension, aspiration pneumonia, hyperlipidemia, interstitial lung disease Allergies Allergy/AdvReac Type Severity Reaction Status Date / Time No Known Allergies Allergy Verified 03/18/18 01:18 Vital Signs Temp 98.1 F 04/19/18 12:00 Pulse 87 04/19/18 12:47 Resp 25 04/19/18 12:47 BP 117/51 04/19/18 12:00 Pulse Ox 98 04/19/18 12:47 Intake & Output 04/18/18 04/19/18 04/19/18 18:59 06:59 18:59 Intake Total 1800 93.333 Output Total 200 Balance 1600 93.333 Weight (lbs) 49.714 kg Intake: Intake, IV Amount 1300 93.333 Meropenem 1 gm In Sodium 93.333 Chloride 0.9% 100 ml @ 100 mls/hr IV Q8H CAESAR Rx# :[id number] Other 500 Output: Urine 200 Other: # Bowel Movements 1 Stool Characteristics Soft Soft Brown Brown Weight Source Bedscale Laboratory Results - last 24 hr 04/18/18 04/18/18 04/18/18 19:42 19:45 19:45 WBC RBC Hgb Hct MCV MCH MCHC Differential RDW Plt Count MPV Add Manual Diff Neutrophils % Band Neutrophils % Lymphocytes % Monocytes % Eosinophils % Basophils % Neutrophils (Manual) Lymphocytes Monocytes Eosinophils Platelet Estimate PT 9.9 INR 0.95 Specimen Source arterial Sample Site left brachial pH 7.42 pCO2 45.0 pO2 62.0 L HCO3 28.0 H Base Excess 4.1 H O2 Saturation 92.0 Angel Test yes Vent Rate n/a Inspired O2 21 Tidal Volume n/a PEEP n/a Pressure (ins/psv/peep) n/a Critical Value abroedel Sodium 136 Potassium 4.9 Chloride 96 L Carbon Dioxide 26.7 Anion Gap 18.2 H BUN 43 H Creatinine 1.3 Est GFR ( Amer) > 60.0 Est GFR (Non-Af Amer) 58.2 BUN/Creatinine Ratio 33.1 Glucose 155 H POC Glucose Whole Bld Lactic Acid Calcium 10.7 H Total Bilirubin 0.3 AST 19 ALT 17 Alkaline Phosphatase 72 Troponin I B-Natriuretic Peptide Total Protein 8.7 H Albumin 4.1 L Globulin 4.6 Albumin/Globulin Ratio 0.9 L TSH Urine Source Urine Color Urine Clarity Urine pH Ur Specific [place] Urine Protein Urine Glucose (UA) Urine Ketones Urine Blood Urine Nitrate Urine Bilirubin Urine Urobilinogen Ur Leukocyte Esterase Urine RBC Urine WBC Ur Epithelial Cells Urine Bacteria Urine Yeast 04/18/18 04/18/18 04/18/18 19:45 19:45 19:45 WBC 17.1 H RBC 4.04 Hgb 11.6 L Hct 35.1 L MCV 86.9 MCH 28.6 MCHC Differential 33.0 RDW 15.7 Plt Count 283 MPV 9.4 Add Manual Diff YES Neutrophils % SHAKER SCREEN OPERATOR Band Neutrophils % 5 Lymphocytes % SHAKER SCREEN OPERATOR Monocytes % SHAKER SCREEN OPERATOR Eosinophils % SHAKER SCREEN OPERATOR Basophils % SHAKER SCREEN OPERATOR Neutrophils (Manual) 77 Lymphocytes 15 L Monocytes 2 Eosinophils 1 Platelet Estimate PT INR Specimen Source Sample Site pH pCO2 pO2 HCO3 Base Excess O2 Saturation Angel Test Vent Rate Inspired O2 Tidal Volume PEEP Pressure (ins/psv/peep) Critical Value Sodium Potassium Chloride Carbon Dioxide Anion Gap BUN Creatinine Est GFR ( Amer) Est GFR (Non-Af Amer) BUN/Creatinine Ratio Glucose POC Glucose Whole Bld Lactic Acid Calcium Total Bilirubin AST ALT Alkaline Phosphatase Troponin I 0.03 B-Natriuretic Peptide Total Protein Albumin Globulin Albumin/Globulin Ratio TSH 4.06 Urine Source Urine Color Urine Clarity Urine pH Ur Specific [place] Urine Protein Urine Glucose (UA) Urine Ketones Urine Blood Urine Nitrate Urine Bilirubin Urine Urobilinogen Ur Leukocyte Esterase Urine RBC Urine WBC Ur Epithelial Cells Urine Bacteria Urine Yeast 04/18/18 04/18/18 04/18/18 19:45 19:45 21:36 WBC RBC Hgb Hct MCV MCH MCHC Differential RDW Plt Count MPV Add Manual Diff Neutrophils % Band Neutrophils % Lymphocytes % Monocytes % Eosinophils % Basophils % Neutrophils (Manual) Lymphocytes Monocytes Eosinophils Platelet Estimate PT INR Specimen Source Sample Site pH pCO2 pO2 HCO3 Base Excess O2 Saturation Angel Test Vent Rate Inspired O2 Tidal Volume PEEP Pressure (ins/psv/peep) Critical Value Sodium Potassium Chloride Carbon Dioxide Anion Gap BUN Creatinine Est GFR ( Amer) Est GFR (Non-Af Amer) BUN/Creatinine Ratio Glucose POC Glucose Whole Bld Lactic Acid 2.05 H* 1.81 Calcium Total Bilirubin AST ALT Alkaline Phosphatase Troponin I B-Natriuretic Peptide 230.0 H Total Protein Albumin Globulin Albumin/Globulin Ratio TSH Urine Source Urine Color Urine Clarity Urine pH Ur Specific [place] Urine Protein Urine Glucose (UA) Urine Ketones Urine Blood Urine Nitrate Urine Bilirubin Urine Urobilinogen Ur Leukocyte Esterase Urine RBC Urine WBC Ur Epithelial Cells Urine Bacteria Urine Yeast 04/19/18 04/19/18 04/19/18 01:09 04:10 04:10 WBC 22.1 H* RBC 3.28 L Hgb 9.7 L Hct 28.7 L D MCV 87.6 MCH 29.7 MCHC Differential 33.9 RDW 16.0 Plt Count 305 MPV 8.7 Add Manual Diff YES Neutrophils % Band Neutrophils % 2 Lymphocytes % Monocytes % Eosinophils % Basophils % Neutrophils (Manual) 90 H Lymphocytes 4 L Monocytes 4 Eosinophils Platelet Estimate ADEQUATE PT INR Specimen Source Sample Site pH pCO2 pO2 HCO3 Base Excess O2 Saturation Angel Test Vent Rate Inspired O2 Tidal Volume PEEP Pressure (ins/psv/peep) Critical Value Sodium 136 Potassium 4.2 Chloride 101 Carbon Dioxide 24.9 Anion Gap 14.3 BUN 42 H Creatinine 1.1 Est GFR ( Amer) > 60.0 Est GFR (Non-Af Amer) > 60.0 BUN/Creatinine Ratio 38.2 Glucose 148 H POC Glucose 150 H Whole Bld Lactic Acid Calcium 9.5 Total Bilirubin AST ALT Alkaline Phosphatase Troponin I B-Natriuretic Peptide Total Protein Albumin Globulin Albumin/Globulin Ratio TSH Urine Source Urine Color Urine Clarity Urine pH Ur Specific [place] Urine Protein Urine Glucose (UA) Urine Ketones Urine Blood Urine Nitrate Urine Bilirubin Urine Urobilinogen Ur Leukocyte Esterase Urine RBC Urine WBC Ur Epithelial Cells Urine Bacteria Urine Yeast 04/19/18 04/19/18 04/19/18 04:15 05:33 11:48 WBC RBC Hgb Hct MCV MCH MCHC Differential RDW Plt Count MPV Add Manual Diff Neutrophils % Band Neutrophils % Lymphocytes % Monocytes % Eosinophils % Basophils % Neutrophils (Manual) Lymphocytes Monocytes Eosinophils Platelet Estimate PT INR Specimen Source Sample Site pH pCO2 pO2 HCO3 Base Excess O2 Saturation Angel Test Vent Rate Inspired O2 Tidal Volume PEEP Pressure (ins/psv/peep) Critical Value Sodium Potassium Chloride Carbon Dioxide Anion Gap BUN Creatinine Est GFR ( Amer) Est GFR (Non-Af Amer) BUN/Creatinine Ratio Glucose POC Glucose 157 H 170 H Whole Bld Lactic Acid Calcium Total Bilirubin AST ALT Alkaline Phosphatase Troponin I B-Natriuretic Peptide Total Protein Albumin Globulin Albumin/Globulin Ratio TSH Urine Source MIDSTREAM Urine Color YELLOW Urine Clarity HAZY Urine pH 6.0 Ur Specific [place] 1.015 Urine Protein 100 H Urine Glucose (UA) NEGATIVE Urine Ketones TRACE Urine Blood NEGATIVE Urine Nitrate NEGATIVE Urine Bilirubin NEGATIVE Urine Urobilinogen 0.2 Ur Leukocyte Esterase MODERATE H Urine RBC 0-2 H Urine WBC 25-50 H Ur Epithelial Cells FEW Urine Bacteria FEW Urine Yeast FEW H Home Medication Medication Instructions Recorded Type Acetaminophen [Tylenol] 650 mg GT Q6HR PRN 04/18/18 History Albuterol/Ipratropium Neb [Duoneb 3 ml HHN Q2H PRN 04/18/18 History Neb] Albuterol/Ipratropium Neb [Duoneb 3 ml HHN Q6H 04/18/18 History Neb] Baclofen [Lioresal*] 5 mg GT HS 04/18/18 History Dorzolamide 2% Ophth Soln [Trusopt 1 drop EACH EYE BID 04/18/18 History 2% Ophth Soln] Fluoxetine HCl [Prozac] 20 mg GT DAILY 04/18/18 History Folic Acid [Folate*] 1 mg GT DAILY 04/18/18 History Lactobacillus Acidophilus 1 each GT DAILY 04/18/18 History [Acidophilus] RX: Docusate Sodium 200 mg GT HS 04/18/18 History RX: Levetiracetam 500 mg GT BID 04/18/18 History RX: Metoclopramide HCl 5 mg GT Q6H 04/18/18 History RX: Metoprolol Tartrate 25 mg GT BID 04/18/18 History Current Medications Generic Name Dose Route Start Last Admin Trade Name Freq PRN Reason Stop Dose Admin Acetaminophen 650 mg 04/19/18 08:49 Tylenol GT 06/18/18 08:48 Q6HR PRN Pain or Fever >101 Albuterol/Ipratropium 3 ml 04/19/18 08:49 04/19/18 12:45 Duoneb Neb [facility] 06/18/18 08:48 3 ml Q2H PRN Administration Shortness of Breath Albuterol/Ipratropium 3 ml 04/19/18 09:00 04/19/18 09:05 Duoneb Neb [facility] 06/18/18 08:59 3 ml Q6H [facility]AR Administration Baclofen 5 mg 04/19/18 21:00 Lioresal GT 06/18/18 20:59 HS CAESAR Docusate Sodium 200 mg 04/20/18 09:00 Colace PO 06/19/18 08:59 HS CAESAR Dorzolamide HCl 1 drop 04/19/18 09:00 Trusopt 2% Ophth Soln EACH EYE 06/18/18 08:59 BID CAESAR Fluoxetine HCl 20 mg 04/19/18 09:00 04/19/18 09:45 Prozac GT 06/18/18 08:59 20 mg DAILY CAESAR Administration Protocol Folic Acid 1 mg 04/19/18 09:00 04/19/18 09:45 Folate GT 06/18/18 08:59 1 mg DAILY CAESAR Administration Azithromycin 500 mg/ Sodium 250 mls @ 250 mls/hr 04/19/18 22:00 Chloride IV 06/18/18 21:59 Q24HR CAESAR Meropenem 1 gm/ Sodium 100 mls @ 100 mls/hr 04/19/18 12:00 04/19/18 12:50 Chloride IV 06/18/18 11:59 0 mls/hr Q8H CAESAR Infusion Insulin Aspart 0 units 04/19/18 00:00 04/19/18 11:53 Novolog Insulin Sliding Scale SUBQ 06/18/18 00:00 2 units Q6HR CAESAR Administration Protocol Lactobacillus Rhamnosus 1 each 04/20/18 09:00 Culturelle 15b GT 06/19/18 08:59 DAILY CAESAR Levetiracetam 500 mg 04/19/18 09:00 04/19/18 09:45 Keppra GT 06/18/18 08:59 500 mg BID CAESAR Administration Metoclopramide HCl 5 mg 04/19/18 10:00 04/19/18 09:45 Reglan GT 06/18/18 09:59 5 mg Q8H CAESAR Administration Metoprolol Tartrate 25 mg 04/19/18 09:00 04/19/18 09:45 Lopressor GT 06/18/18 08:59 25 mg BID CAESAR Administration Review of Systems: A 12 point ROS was reviewed with the pertinent positive and negatives noted in the HPI. Social History Smoking Status Unknown if ever smoked Drug Use No Alcohol Use No Family Medical History Noncontributory. Physical Exam: General: Comfortable, not in acute distress. Cachectic. HEENT: Head: Normocephalic, atraumatic. Oral cavity: Moist, pink tongue. Eyes : Pallor is present icterus. Pupil PERRLA. Neck: Trach site is clear to tract site is clear Cardio: S1 and S2 within normal limits regular rhythm no murmur no gallop. Respiratory: Vesicular breath sound. Crackles present bilaterally. Abdominal: Soft, nontender nondistended bowel sounds present G-tube site is clear Genital/Urinary: Deferred. Extremities: No cyanosis, no clubbing, no edema. Neurological: Alert, awake, aphasic. Assessment: 1. Leukocytosis. Suspect sepsis. 2. Pneumonia. 3. UTI. 4. Respirations insufficiency on T bar oxygen. 5. Diabetes mellitus type 2. 6. Protein calorie malnutrition. 7. Decubitus ulcer. Sacral stage II. 8. History of UTI, ESBL Escherichia coli urine infection. 9. Diabetes mellitus type 2. 10. CVA. 11. hypertension, 12. Hyperlipidemia. 13. Interstitial lung disease. Plan: Continue meropenem and Zithromax. Sepsis workup. Check labs in the morning. Thank you, Dr. Rogers for involving taking care of this patient. Signed, Jarek Candelaria M.D. [id number]
[2018-04-19] MEDS ORDERED: Non-Formulary Item 1 EA (Docusate Sodium [Docusate Sodium] 200 MG) GT SCH (21:00)
[2018-04-19] MEDS ORDERED: cefTRIAXone 1 GM in Sodium Chloride 0.9% 50 ML IV SCH (21:00)
[2018-04-19] MEDS: Azithromycin 500 MG in Sodium Chloride 0.9% 250 ML IV SCH (22:03)
--- NOTE | 2018-04-19 23:30 | History & Physical ---
ADMIT DATE: 04/19/2018 The patient from the [facility], came to the ER and was admitted. Apparently, the patient has been having increasing fever. Chest x-ray showed increasing pneumonia. HISTORY OF PRESENT ILLNESS: A 67-year-old male patient is well known to me from before, ____ from [place]. The patient known to have a history of respiratory insufficiency, he is on T-bar. Also, has a history of UTI, history of ESBL E. coli infection, history of diabetes type 2, CVA, hypertension, aspiration pneumonia, hyperlipidemia, interstitial lung disease, developed hypoxemia and increased weakness and came to the Emergency Room. White count was 17,000, was admitted. The patient was started on Rocephin and Zithromax. PAST MEDICAL HISTORY: As enumerated above. PAST SURGICAL HISTORY: The patient is status post trach and PEG. PHYSICAL EXAMINATION: HEAD: Normal. ENT: Normal. NECK: Supple, nontender. LUNGS: Bilateral rales. CARDIOVASCULAR SYSTEM: S1, S2 heard. GENERAL: The patient is confused and demented. DIAGNOSES: Bilateral pneumonia, leukocytosis, sepsis, status post trach, status post PEG patient and cachexia pneumonia. PLAN: The patient is being admitted and I will follow the patient. JOB# [id number]
--- NOTE | 2018-04-20 00:26 | Consultation ---
DATE OF CONSULTATION: REFERRING PHYSICIAN: Dr. Rogers. Thank you very much for this consultation. HISTORY OF PRESENT ILLNESS: This is a 67-year-old male with a history of chronic respiratory failure, he has been on vent and trach for the past 8 months. He has a history of CVA before, ended up with aspiration, requiring tracheostomy and ventilator support. The patient has been off the ventilator. He has been treated recently couple times here and other hospitals for aspiration pneumonia. He presents with emesis and possible aspiration, and was admitted for treatment and management. PAST MEDICAL HISTORY: Diabetes, hypertension. SOCIAL HISTORY: No history of smoking. REVIEW OF SYSTEMS: GENERAL: No weakness or fatigue. CARDIOVASCULAR: No chest pain. RESPIRATORY: No shortness of breath. PHYSICAL EXAMINATION: VITAL SIGNS: Temperature is 98.1, pulse 85, respiration is 25, blood pressure 117/51, saturation is 98%. HEENT: Atraumatic and normocephalic. Pupils equal and reactive to light and accommodation. Ears, nose, and throat normal. NECK: Supple. No JVD. CHEST: There are a few rhonchi in bases. HEART: Regular rate and rhythm. No murmurs. ABDOMEN: Soft. No tenderness. EXTREMITIES: No edema. IMAGING: Chest x-ray; scattered interstitial infiltrates bilaterally. LABORATORY DATA: WBC is 22.1, hemoglobin 9.7, hematocrit 28.7, platelets is 305. Sodium 136, potassium 4.2, BUN is 42, creatinine 1.1. IMPRESSION: 1. Respiratory failure. 2. Pneumonia, possible aspiration. 3. Some dehydration. 4. Weakness. 5. History of cerebrovascular accident. 6. Dysphagia. PLAN: 1. Nebulizer treatment. 2. Antibiotics. 3. Sputum culture. 4. Pulmonary toilet. 5. Follow up cultures. Discussed with sister at bedside. Thank you very much for this consultation. We will follow the patient with you. JOB# [id number]
[2018-04-20] MEDS: Meropenem 1 GM in Sodium Chloride 0.9% 100 ML IV SCH ×3 (03:01→20:41)
[2018-04-20] MEDS: Albuterol/Ipratropium Neb 3 ML AERS HHN SCH ×3 (05:29→12:07)
[2018-04-20] MEDS: INSULIN ASPART SLIDING SCALE 100 UNITS/ML UNIT SUBQ SCH ×3 (06:26→17:31)
[2018-04-20] MEDS ORDERED: Probiotic Screen MC PRN (09:30)
[2018-04-20] MEDS: Lactobacillus Rhamnosus GG 15 Billion CFU CAP.SPRINK GT SCH (09:49)
[2018-04-20] MEDS: Levetiracetam 500 mg/5mL 5mL UDSyr *for ORAL USE ONLY GT SCH ×2 (09:51→17:22)
--- NOTE | 2018-04-20 13:49 | Infectious Disease Prog Note ---
Infectious Disease Subjective - Review of Systems Service Date: 04/20/18 Subjective: There is no new change, no fever. Infectious Disease Objective - Results Result Diagrams: 04/19/18 04:10 04/19/18 04:10 Recent Labs: Laboratory Last Values WBC 22.1 Th/cmm (4.8-10.8) H* 04/19/18 04:10 RBC 3.28 Mil/cmm (3.80-5.80) L 04/19/18 04:10 Hgb 9.7 gm/dL (12-16) L 04/19/18 04:10 Hct 28.7 % (41.0-60) L D 04/19/18 04:10 MCV 87.6 fl (80-99) 04/19/18 04:10 MCH 29.7 pg (27.0-31.0) 04/19/18 04:10 MCHC Differential 33.9 pg (28.0-36.0) 04/19/18 04:10 RDW 16.0 % (11.5-20.0) 04/19/18 04:10 Plt Count 305 Th/cmm (150-400) 04/19/18 04:10 MPV 8.7 fl 04/19/18 04:10 Add Manual Diff YES 04/19/18 04:10 Neutrophils % THERMITE WELDER 04/18/18 19:45 Band Neutrophils % 2 % (0-10) 04/19/18 04:10 Lymphocytes % THERMITE WELDER 04/18/18 19:45 Monocytes % THERMITE WELDER 04/18/18 19:45 Eosinophils % THERMITE WELDER 04/18/18 19:45 Basophils % THERMITE WELDER 04/18/18 19:45 Neutrophils (Manual) 90 % (40-80) H 04/19/18 04:10 Lymphocytes 4 % (20-50) L 04/19/18 04:10 Monocytes 4 % (2-10) 04/19/18 04:10 Eosinophils 1 % (0-5) 04/18/18 19:45 Platelet Estimate ADEQUATE (NORMAL) 04/19/18 04:10 PT 9.9 SECONDS (9.5-11.5) 04/18/18 19:45 INR 0.95 (0.5-1.4) 04/18/18 19:45 Specimen Source arterial 04/18/18 19:42 Sample Site left brachial 04/18/18 19:42 pH 7.42 (7.35-7.45) 04/18/18 19:42 pCO2 45.0 mmHg (35.0-45.0) 04/18/18 19:42 pO2 62.0 mmHg (80.0-100.0) L 04/18/18 19:42 HCO3 28.0 mEq/L (20.0-26.0) H 04/18/18 19:42 Base Excess 4.1 mEq/L (-3.0-3.0) H 04/18/18 19:42 O2 Saturation 92.0 % (92.0-100.0) 04/18/18 19:42 Angel Test yes 04/18/18 19:42 Vent Rate n/a 04/18/18 19:42 Inspired O2 21 04/18/18 19:42 Tidal Volume n/a 04/18/18 19:42 PEEP n/a 04/18/18 19:42 Pressure (ins/psv/peep) n/a 04/18/18 19:42 Critical Value abroedel 04/18/18 19:42 Sodium 136 mEq/L (136-145) 04/19/18 04:10 Potassium 4.2 mEq/L (3.5-5.1) 04/19/18 04:10 Chloride 101 mEq/L (98-107) 04/19/18 04:10 Carbon Dioxide 24.9 mEq/L (21.0-31.0) 04/19/18 04:10 Anion Gap 14.3 (7.0-16.0) 04/19/18 04:10 BUN 42 mg/dL (7-25) H 04/19/18 04:10 Creatinine 1.1 mg/dL (0.7-1.3) 04/19/18 04:10 Est GFR ( Amer) > 60.0 ml/min (>90) 04/19/18 04:10 Est GFR (Non-Af Amer) > 60.0 ml/min 04/19/18 04:10 BUN/Creatinine Ratio 38.2 04/19/18 04:10 Glucose 148 mg/dL (70-105) H 04/19/18 04:10 POC Glucose 163 MG/DL (70 - 105) H 04/20/18 12:05 Whole Bld Lactic Acid 1.81 mmol/L (0.60-1.99) 04/18/18 21:36 Calcium 9.5 mg/dL (8.6-10.3) 04/19/18 04:10 Total Bilirubin 0.3 mg/dL (0.3-1.0) 04/18/18 19:45 AST 19 U/L (13-39) 04/18/18 19:45 ALT 17 U/L (7-52) 04/18/18 19:45 Alkaline Phosphatase 72 U/L (34-104) 04/18/18 19:45 Troponin I 0.03 ng/mL (0.01-0.05) 04/18/18 19:45 B-Natriuretic Peptide 230.0 pg/mL (5.0-100.0) H 04/18/18 19:45 Total Protein 8.7 gm/dL (6.0-8.3) H 04/18/18 19:45 Albumin 4.1 gm/dL (4.2-5.5) L 04/18/18 19:45 Globulin 4.6 gm/dL 04/18/18 19:45 Albumin/Globulin Ratio 0.9 (1.0-1.8) L 04/18/18 19:45 TSH 4.06 uIU/ml (0.34-5.60) 04/18/18 19:45 Urine Source MIDSTREAM 04/19/18 04:15 Urine Color YELLOW 04/19/18 04:15 Urine Clarity HAZY (CLEAR) 04/19/18 04:15 Urine pH 6.0 (4.6 - 8.0) 04/19/18 04:15 Ur Specific [place] 1.015 (1.005-1.030) 04/19/18 04:15 Urine Protein 100 mg/dL (NEGATIVE) H 04/19/18 04:15 Urine Glucose (UA) NEGATIVE mg/dL (NEGATIVE) 04/19/18 04:15 Urine Ketones TRACE mg/dL (NEGATIVE) 04/19/18 04:15 Urine Blood NEGATIVE (NEGATIVE) 04/19/18 04:15 Urine Nitrate NEGATIVE (NEGATIVE) 04/19/18 04:15 Urine Bilirubin NEGATIVE (NEGATIVE) 04/19/18 04:15 Urine Urobilinogen 0.2 E.U./dL (0.2 - 1.0) 04/19/18 04:15 Ur Leukocyte Esterase MODERATE (NEGATIVE) H 04/19/18 04:15 Urine RBC 0-2 /hpf (0-5) H 04/19/18 04:15 Urine WBC 25-50 /hpf (0-5) H 04/19/18 04:15 Ur Epithelial Cells FEW /lpf (FEW) 04/19/18 04:15 Urine Bacteria FEW /hpf (NONE SEEN) 04/19/18 04:15 Urine Yeast FEW /hpf (NONE SEEN) H 04/19/18 04:15 - Physical Exam Vitals and I&O: Vital Signs Temp 96.5 F 04/20/18 12:00 Pulse 96 04/20/18 12:09 Resp 22 04/20/18 12:09 BP 140/78 04/20/18 12:00 Pulse Ox 100 04/20/18 12:09 Intake & Output 04/19/18 04/20/18 04/20/18 18:59 06:59 18:59 Intake Total 705.277 8969 100 Output Total 400 Balance 054.239 7432 100 Weight (lbs) 49.714 kg Intake: Intake, IV Amount 100.000 200 100 Meropenem 1 gm In Sodium 100.000 200 100 Chloride 0.9% 100 ml @ 100 mls/hr IV Q8H [facility] Rx# :[id number] Other 1300 Output: Urine 400 Other: # Bowel Movements 0 Stool Characteristics Soft Brown Weight Source Bedscale Active Medications: Current Medications Acetaminophen (Tylenol) 650 mg GT Q6HR PRN PRN Reason: Pain or Fever >101 Stop: 06/18/18 08:48 Albuterol/Ipratropium (Duoneb Neb) 3 ml HHN Q2H PRN PRN Reason: Shortness of Breath Stop: 06/18/18 08:48 Last Admin: 04/19/18 12:45 Dose: 3 ml Albuterol/Ipratropium (Duoneb Neb) 3 ml HHN Q6H [facility] Stop: 06/18/18 08:59 Last Admin: 04/20/18 12:07 Dose: 3 ml Baclofen (Lioresal) 5 mg GT HS [facility] Stop: 06/18/18 20:59 Last Admin: 04/19/18 21:08 Dose: 5 mg Docusate Sodium (Colace) 200 mg PO HS [facility] Stop: 06/19/18 08:59 Last Admin: 04/20/18 09:54 Dose: 200 mg Dorzolamide HCl (Trusopt 2% Ophth Soln) 1 drop EACH EYE BID [facility] Stop: 06/18/18 08:59 Last Admin: 04/20/18 09:51 Dose: 1 drop Fluoxetine HCl (Prozac) 20 mg GT DAILY [facility]; Protocol Stop: 06/18/18 08:59 Last Admin: 04/20/18 09:49 Dose: 20 mg Folic Acid (Folate) 1 mg GT DAILY [facility] Stop: 06/18/18 08:59 Last Admin: 04/20/18 09:49 Dose: 1 mg Azithromycin 500 mg/ Sodium (Chloride) 250 mls @ 250 mls/hr IV Q24HR [facility] Stop: 06/18/18 21:59 Last Admin: 04/19/18 22:03 Dose: 250 mls/hr Meropenem 1 gm/ Sodium (Chloride) 100 mls @ 100 mls/hr IV Q8H [facility] Stop: 06/18/18 11:59 Last Infusion: 04/20/18 13:05 Dose: Infused Insulin Aspart (Novolog Insulin Sliding Scale) 0 units SUBQ Q6HR [facility]; Protocol Stop: 06/18/18 00:00 Last Admin: 04/20/18 12:05 Dose: 2 units Lactobacillus Rhamnosus (Culturelle 15b) 1 each GT DAILY [facility] Stop: 06/19/18 08:59 Last Admin: 04/20/18 09:49 Dose: 1 each Levetiracetam (Keppra) 500 mg GT BID [facility] Stop: 06/18/18 08:59 Last Admin: 04/20/18 09:51 Dose: 500 mg Metoclopramide HCl (Reglan) 5 mg GT Q8H [facility] Stop: 06/18/18 09:59 Last Admin: 04/20/18 10:30 Dose: 5 mg Metoprolol Tartrate (Lopressor) 25 mg GT BID [facility] Stop: 06/18/18 08:59 Last Admin: 04/20/18 09:49 Dose: 25 mg Miscellaneous (Probiotic Screen) 1 ea MC PRN PRN PRN Reason: PROTOCOL Stop: 06/19/18 09:29 General: no acute distress, cachectic HEENT: atraumatic, normocephalic, PERRLA Neck: supple, tracheostomy, no thyromegaly Cardiovascular: S1S2, regular Lungs: crackles, no clear to auscultation bilaterally, no clear to percussion Abdomen: soft, no tender, no distended, no mass, no hepatomegaly, no splenomegaly Extremities: no cyanosis, no clubbing, no edema Neurological: awake, alert, oriented Infectious Disease Assmt/Plan - Assessment Assessment: 1. Leukocytosis. Suspect sepsis. 2. Pneumonia. 3. UTI. 4. Respirations insufficiency on T bar oxygen. 5. Diabetes mellitus type 2. 6. Protein calorie malnutrition. 7. Decubitus ulcer. Sacral stage II. 8. History of UTI, ESBL Escherichia coli urine infection. 9. Diabetes mellitus type 2. 10. CVA. 11. hypertension, 12. Hyperlipidemia. 13. Interstitial lung disease. - Plan Plan: CPM.
--- NOTE | 2018-04-20 15:41 | General Progress Note ---
Subjective - Review of Systems Events since last encounter: no change no fever Objective - Results Result Diagrams: 04/19/18 04:10 04/19/18 04:10 Recent Labs: Laboratory Last Values WBC 22.1 Th/cmm (4.8-10.8) H* 04/19/18 04:10 RBC 3.28 Mil/cmm (3.80-5.80) L 04/19/18 04:10 Hgb 9.7 gm/dL (12-16) L 04/19/18 04:10 Hct 28.7 % (41.0-60) L D 04/19/18 04:10 MCV 87.6 fl (80-99) 04/19/18 04:10 MCH 29.7 pg (27.0-31.0) 04/19/18 04:10 MCHC Differential 33.9 pg (28.0-36.0) 04/19/18 04:10 RDW 16.0 % (11.5-20.0) 04/19/18 04:10 Plt Count 305 Th/cmm (150-400) 04/19/18 04:10 MPV 8.7 fl 04/19/18 04:10 Add Manual Diff YES 04/19/18 04:10 Neutrophils % DRAMA THERAPIST 04/18/18 19:45 Band Neutrophils % 2 % (0-10) 04/19/18 04:10 Lymphocytes % DRAMA THERAPIST 04/18/18 19:45 Monocytes % DRAMA THERAPIST 04/18/18 19:45 Eosinophils % DRAMA THERAPIST 04/18/18 19:45 Basophils % DRAMA THERAPIST 04/18/18 19:45 Neutrophils (Manual) 90 % (40-80) H 04/19/18 04:10 Lymphocytes 4 % (20-50) L 04/19/18 04:10 Monocytes 4 % (2-10) 04/19/18 04:10 Eosinophils 1 % (0-5) 04/18/18 19:45 Platelet Estimate ADEQUATE (NORMAL) 04/19/18 04:10 PT 9.9 SECONDS (9.5-11.5) 04/18/18 19:45 INR 0.95 (0.5-1.4) 04/18/18 19:45 Specimen Source arterial 04/18/18 19:42 Sample Site left brachial 04/18/18 19:42 pH 7.42 (7.35-7.45) 04/18/18 19:42 pCO2 45.0 mmHg (35.0-45.0) 04/18/18 19:42 pO2 62.0 mmHg (80.0-100.0) L 04/18/18 19:42 HCO3 28.0 mEq/L (20.0-26.0) H 04/18/18 19:42 Base Excess 4.1 mEq/L (-3.0-3.0) H 04/18/18 19:42 O2 Saturation 92.0 % (92.0-100.0) 04/18/18 19:42 Angel Test yes 04/18/18 19:42 Vent Rate n/a 04/18/18 19:42 Inspired O2 21 04/18/18 19:42 Tidal Volume n/a 04/18/18 19:42 PEEP n/a 04/18/18 19:42 Pressure (ins/psv/peep) n/a 04/18/18 19:42 Critical Value abroedel 04/18/18 19:42 Sodium 136 mEq/L (136-145) 04/19/18 04:10 Potassium 4.2 mEq/L (3.5-5.1) 04/19/18 04:10 Chloride 101 mEq/L (98-107) 04/19/18 04:10 Carbon Dioxide 24.9 mEq/L (21.0-31.0) 04/19/18 04:10 Anion Gap 14.3 (7.0-16.0) 04/19/18 04:10 BUN 42 mg/dL (7-25) H 04/19/18 04:10 Creatinine 1.1 mg/dL (0.7-1.3) 04/19/18 04:10 Est GFR ( Amer) > 60.0 ml/min (>90) 04/19/18 04:10 Est GFR (Non-Af Amer) > 60.0 ml/min 04/19/18 04:10 BUN/Creatinine Ratio 38.2 04/19/18 04:10 Glucose 148 mg/dL (70-105) H 04/19/18 04:10 POC Glucose 163 MG/DL (70 - 105) H 04/20/18 12:05 Whole Bld Lactic Acid 1.81 mmol/L (0.60-1.99) 04/18/18 21:36 Calcium 9.5 mg/dL (8.6-10.3) 04/19/18 04:10 Total Bilirubin 0.3 mg/dL (0.3-1.0) 04/18/18 19:45 AST 19 U/L (13-39) 04/18/18 19:45 ALT 17 U/L (7-52) 04/18/18 19:45 Alkaline Phosphatase 72 U/L (34-104) 04/18/18 19:45 Troponin I 0.03 ng/mL (0.01-0.05) 04/18/18 19:45 B-Natriuretic Peptide 230.0 pg/mL (5.0-100.0) H 04/18/18 19:45 Total Protein 8.7 gm/dL (6.0-8.3) H 04/18/18 19:45 Albumin 4.1 gm/dL (4.2-5.5) L 04/18/18 19:45 Globulin 4.6 gm/dL 04/18/18 19:45 Albumin/Globulin Ratio 0.9 (1.0-1.8) L 04/18/18 19:45 TSH 4.06 uIU/ml (0.34-5.60) 04/18/18 19:45 Urine Source MIDSTREAM 04/19/18 04:15 Urine Color YELLOW 04/19/18 04:15 Urine Clarity HAZY (CLEAR) 04/19/18 04:15 Urine pH 6.0 (4.6 - 8.0) 04/19/18 04:15 Ur Specific [place] 1.015 (1.005-1.030) 04/19/18 04:15 Urine Protein 100 mg/dL (NEGATIVE) H 04/19/18 04:15 Urine Glucose (UA) NEGATIVE mg/dL (NEGATIVE) 04/19/18 04:15 Urine Ketones TRACE mg/dL (NEGATIVE) 04/19/18 04:15 Urine Blood NEGATIVE (NEGATIVE) 04/19/18 04:15 Urine Nitrate NEGATIVE (NEGATIVE) 04/19/18 04:15 Urine Bilirubin NEGATIVE (NEGATIVE) 04/19/18 04:15 Urine Urobilinogen 0.2 E.U./dL (0.2 - 1.0) 04/19/18 04:15 Ur Leukocyte Esterase MODERATE (NEGATIVE) H 04/19/18 04:15 Urine RBC 0-2 /hpf (0-5) H 04/19/18 04:15 Urine WBC 25-50 /hpf (0-5) H 04/19/18 04:15 Ur Epithelial Cells FEW /lpf (FEW) 04/19/18 04:15 Urine Bacteria FEW /hpf (NONE SEEN) 04/19/18 04:15 Urine Yeast FEW /hpf (NONE SEEN) H 04/19/18 04:15 - Physical Exam Vitals and I&O: Vital Signs Temp 96.5 F 04/20/18 12:00 Pulse 96 04/20/18 12:09 Resp 22 04/20/18 12:09 BP 140/78 04/20/18 12:00 Pulse Ox 98 04/20/18 14:00 Intake & Output 04/19/18 04/20/18 04/20/18 18:59 06:59 18:59 Intake Total 640.840 9926 100 Output Total 400 Balance 215.385 1670 100 Weight (lbs) 49.714 kg Intake: Intake, IV Amount 100.000 200 100 Meropenem 1 gm In Sodium 100.000 200 100 Chloride 0.9% 100 ml @ 100 mls/hr IV Q8H [facility] Rx# :[id number] Other 1300 Output: Urine 400 Other: # Bowel Movements 0 Stool Characteristics Soft Brown Weight Source Bedscale Active Medications: Current Medications Acetaminophen (Tylenol) 650 mg GT Q6HR PRN PRN Reason: Pain or Fever >101 Stop: 06/18/18 08:48 Albuterol/Ipratropium (Duoneb Neb) 3 ml HHN Q2H PRN PRN Reason: Shortness of Breath Stop: 06/18/18 08:48 Last Admin: 04/19/18 12:45 Dose: 3 ml Albuterol/Ipratropium (Duoneb Neb) 3 ml HHN Q6H [facility] Stop: 06/18/18 08:59 Last Admin: 04/20/18 12:07 Dose: 3 ml Baclofen (Lioresal) 5 mg GT HS [facility] Stop: 06/18/18 20:59 Last Admin: 04/19/18 21:08 Dose: 5 mg Docusate Sodium (Colace) 200 mg PO HS [facility] Stop: 06/19/18 08:59 Last Admin: 04/20/18 09:54 Dose: 200 mg Dorzolamide HCl (Trusopt 2% Ophth Soln) 1 drop EACH EYE BID [facility] Stop: 06/18/18 08:59 Last Admin: 04/20/18 09:51 Dose: 1 drop Fluoxetine HCl (Prozac) 20 mg GT DAILY [facility]; Protocol Stop: 06/18/18 08:59 Last Admin: 04/20/18 09:49 Dose: 20 mg Folic Acid (Folate) 1 mg GT DAILY [facility] Stop: 06/18/18 08:59 Last Admin: 04/20/18 09:49 Dose: 1 mg Azithromycin 500 mg/ Sodium (Chloride) 250 mls @ 250 mls/hr IV Q24HR [facility] Stop: 06/18/18 21:59 Last Admin: 04/19/18 22:03 Dose: 250 mls/hr Meropenem 1 gm/ Sodium (Chloride) 100 mls @ 100 mls/hr IV Q8H [facility] Stop: 06/18/18 11:59 Last Infusion: 04/20/18 13:05 Dose: Infused Insulin Aspart (Novolog Insulin Sliding Scale) 0 units SUBQ Q6HR [facility]; Protocol Stop: 06/18/18 00:00 Last Admin: 04/20/18 12:05 Dose: 2 units Lactobacillus Rhamnosus (Culturelle 15b) 1 each GT DAILY [facility] Stop: 06/19/18 08:59 Last Admin: 04/20/18 09:49 Dose: 1 each Levetiracetam (Keppra) 500 mg GT BID [facility] Stop: 06/18/18 08:59 Last Admin: 04/20/18 09:51 Dose: 500 mg Metoclopramide HCl (Reglan) 5 mg GT Q8H [facility] Stop: 06/18/18 09:59 Last Admin: 04/20/18 10:30 Dose: 5 mg Metoprolol Tartrate (Lopressor) 25 mg GT BID [facility] Stop: 06/18/18 08:59 Last Admin: 04/20/18 09:49 Dose: 25 mg Miscellaneous (Probiotic Screen) 1 ea MC PRN PRN PRN Reason: PROTOCOL Stop: 06/19/18 09:29
[2018-04-20] MEDS: Azithromycin 500 MG in Sodium Chloride 0.9% 250 ML IV SCH (21:00)
[2018-04-21] MEDS: INSULIN ASPART SLIDING SCALE 100 UNITS/ML UNIT SUBQ SCH ×4 (00:27→18:10)
[2018-04-21] MEDS: Albuterol/Ipratropium Neb 3 ML AERS HHN SCH ×4 (00:54→19:29)
[2018-04-21] MEDS: Meropenem 1 GM in Sodium Chloride 0.9% 100 ML IV SCH ×2 (03:20→12:00)
[2018-04-21 04:46] LABS: % BASOPHILS 0.3 % (0.0-2.0); % EOSINOPHILS 3.6 % (0.0-5.0); % LYMPHOCYTES 12.6 % (20.0-50.0); % MONOCYTES 10.1 % (2.0-10.0); % NEUTROPHILS 73.4 % (40.0-80.0); EOSINOPHILE ABSOLUTE 0.4 Th/cmm (0.1-0.4); HEMATOCRIT 29.4 % (41.0-60); HEMOGLOBIN 9.9 gm/dL (12-16); LYMPHOCYTE ABSOLUTE 1.4 Th/cmm (1.5-3.0); MEAN CELL VOLUME 88.3 fl (80-99); MEAN CORPUSCULAR HEMOGLOBIN 29.8 pg (27.0-31.0); MEAN CORPUSCULAR HGB CONC 33.7 pg (28.0-36.0); MEAN PLATELET VOLUME 9.3 fl; MONOCYTE ABSOLUTE 1.1 Th/cmm (0.3-1.0); NEUTROPHILE ABSOLUTE 7.9 Th/cmm (1.8-8.0); PLATELET COUNT 309 Th/cmm (150-400); RED BLOOD COUNT 3.33 Mil/cmm (3.80-5.80); WHITE BLOOD COUNT 10.8 Th/cmm (4.8-10.8)
--- NOTE | 2018-04-21 08:35 | Diagnostic Imaging Report ---
Portable chest x-ray Time: 0756 COMPARISON: 04/18/2018 History: Shortness of breath Allowing for portable technique the heart size is normal. No focal pulmonary parenchymal processes. No hilar or mediastinal abnormalities. Tracheostomy tube is midline. Impression: No acute abnormalities.
[2018-04-21] MEDS: Levetiracetam 500 mg/5mL 5mL UDSyr *for ORAL USE ONLY GT SCH ×2 (09:21→16:34)
[2018-04-21] MEDS: Lactobacillus Rhamnosus GG 15 Billion CFU CAP.SPRINK GT SCH (09:21)
--- NOTE | 2018-04-21 14:17 | Infectious Disease Prog Note ---
Infectious Disease Subjective - Review of Systems Service Date: 04/21/18 Subjective: There is no new change, no fever. Infectious Disease Objective - Results Result Diagrams: 04/21/18 04:15 04/19/18 04:10 Recent Labs: Laboratory Last Values WBC 10.8 Th/cmm (4.8-10.8) 04/21/18 04:15 RBC 3.33 Mil/cmm (3.80-5.80) L 04/21/18 04:15 Hgb 9.9 gm/dL (12-16) L 04/21/18 04:15 Hct 29.4 % (41.0-60) L 04/21/18 04:15 MCV 88.3 fl (80-99) 04/21/18 04:15 MCH 29.8 pg (27.0-31.0) 04/21/18 04:15 MCHC Differential 33.7 pg (28.0-36.0) 04/21/18 04:15 RDW 16.0 % (11.5-20.0) 04/21/18 04:15 Plt Count 309 Th/cmm (150-400) 04/21/18 04:15 MPV 9.3 fl 04/21/18 04:15 Add Manual Diff YES 04/19/18 04:10 Neutrophils % 73.4 % (40.0-80.0) 04/21/18 04:15 Band Neutrophils % 2 % (0-10) 04/19/18 04:10 Lymphocytes % 12.6 % (20.0-50.0) L 04/21/18 04:15 Monocytes % 10.1 % (2.0-10.0) H 04/21/18 04:15 Eosinophils % 3.6 % (0.0-5.0) 04/21/18 04:15 Basophils % 0.3 % (0.0-2.0) 04/21/18 04:15 Neutrophils (Manual) 90 % (40-80) H 04/19/18 04:10 Lymphocytes 4 % (20-50) L 04/19/18 04:10 Monocytes 4 % (2-10) 04/19/18 04:10 Eosinophils 1 % (0-5) 04/18/18 19:45 Platelet Estimate ADEQUATE (NORMAL) 04/19/18 04:10 PT 9.9 SECONDS (9.5-11.5) 04/18/18 19:45 INR 0.95 (0.5-1.4) 04/18/18 19:45 Specimen Source arterial 04/18/18 19:42 Sample Site left brachial 04/18/18 19:42 pH 7.42 (7.35-7.45) 04/18/18 19:42 pCO2 45.0 mmHg (35.0-45.0) 04/18/18 19:42 pO2 62.0 mmHg (80.0-100.0) L 04/18/18 19:42 HCO3 28.0 mEq/L (20.0-26.0) H 04/18/18 19:42 Base Excess 4.1 mEq/L (-3.0-3.0) H 04/18/18 19:42 O2 Saturation 92.0 % (92.0-100.0) 04/18/18 19:42 Angel Test yes 04/18/18 19:42 Vent Rate n/a 04/18/18 19:42 Inspired O2 21 04/18/18 19:42 Tidal Volume n/a 04/18/18 19:42 PEEP n/a 04/18/18 19:42 Pressure (ins/psv/peep) n/a 04/18/18 19:42 Critical Value abroedel 04/18/18 19:42 Sodium 136 mEq/L (136-145) 04/19/18 04:10 Potassium 4.2 mEq/L (3.5-5.1) 04/19/18 04:10 Chloride 101 mEq/L (98-107) 04/19/18 04:10 Carbon Dioxide 24.9 mEq/L (21.0-31.0) 04/19/18 04:10 Anion Gap 14.3 (7.0-16.0) 04/19/18 04:10 BUN 42 mg/dL (7-25) H 04/19/18 04:10 Creatinine 1.1 mg/dL (0.7-1.3) 04/19/18 04:10 Est GFR ( Amer) > 60.0 ml/min (>90) 04/19/18 04:10 Est GFR (Non-Af Amer) > 60.0 ml/min 04/19/18 04:10 BUN/Creatinine Ratio 38.2 04/19/18 04:10 Glucose 148 mg/dL (70-105) H 04/19/18 04:10 POC Glucose 199 MG/DL (70 - 105) H 04/20/18 17:30 Whole Bld Lactic Acid 1.81 mmol/L (0.60-1.99) 04/18/18 21:36 Calcium 9.5 mg/dL (8.6-10.3) 04/19/18 04:10 Total Bilirubin 0.3 mg/dL (0.3-1.0) 04/18/18 19:45 AST 19 U/L (13-39) 04/18/18 19:45 ALT 17 U/L (7-52) 04/18/18 19:45 Alkaline Phosphatase 72 U/L (34-104) 04/18/18 19:45 Troponin I 0.03 ng/mL (0.01-0.05) 04/18/18 19:45 B-Natriuretic Peptide 230.0 pg/mL (5.0-100.0) H 04/18/18 19:45 Total Protein 8.7 gm/dL (6.0-8.3) H 04/18/18 19:45 Albumin 4.1 gm/dL (4.2-5.5) L 04/18/18 19:45 Globulin 4.6 gm/dL 04/18/18 19:45 Albumin/Globulin Ratio 0.9 (1.0-1.8) L 04/18/18 19:45 TSH 4.06 uIU/ml (0.34-5.60) 04/18/18 19:45 Urine Source MIDSTREAM 04/19/18 04:15 Urine Color YELLOW 04/19/18 04:15 Urine Clarity HAZY (CLEAR) 04/19/18 04:15 Urine pH 6.0 (4.6 - 8.0) 04/19/18 04:15 Ur Specific [place] 1.015 (1.005-1.030) 04/19/18 04:15 Urine Protein 100 mg/dL (NEGATIVE) H 04/19/18 04:15 Urine Glucose (UA) NEGATIVE mg/dL (NEGATIVE) 04/19/18 04:15 Urine Ketones TRACE mg/dL (NEGATIVE) 04/19/18 04:15 Urine Blood NEGATIVE (NEGATIVE) 04/19/18 04:15 Urine Nitrate NEGATIVE (NEGATIVE) 04/19/18 04:15 Urine Bilirubin NEGATIVE (NEGATIVE) 04/19/18 04:15 Urine Urobilinogen 0.2 E.U./dL (0.2 - 1.0) 04/19/18 04:15 Ur Leukocyte Esterase MODERATE (NEGATIVE) H 04/19/18 04:15 Urine RBC 0-2 /hpf (0-5) H 04/19/18 04:15 Urine WBC 25-50 /hpf (0-5) H 04/19/18 04:15 Ur Epithelial Cells FEW /lpf (FEW) 04/19/18 04:15 Urine Bacteria FEW /hpf (NONE SEEN) 04/19/18 04:15 Urine Yeast FEW /hpf (NONE SEEN) H 04/19/18 04:15 - Physical Exam Vitals and I&O: Vital Signs Temp 98.2 F 04/21/18 12:00 Pulse 64 04/21/18 14:01 Resp 17 04/21/18 14:01 BP 151/71 04/21/18 12:00 Pulse Ox 100 04/21/18 14:01 Intake & Output 04/20/18 04/21/18 04/21/18 18:59 06:59 18:59 Intake Total 1105 1300 100 Output Total 520 1100 Balance 585 200 100 Weight (lbs) 49.583 kg 49.442 kg Intake: Intake, IV Amount 100 450 100 Azithromycin 500 mg In 250 Sodium Chloride 0.9% 250 ml @ 250 mls/hr IV Q24HR [facility] Rx#:[id number] Meropenem 1 gm In Sodium 100 200 100 Chloride 0.9% 100 ml @ 100 mls/hr IV Q8H [facility] Rx# :[id number] Tube Feeding 605 850 Other 400 Output: Urine 520 1100 Other: # Bowel Movements 1 2 Stool Characteristics Soft Soft Green Green Weight Source Bedscale Bedscale Active Medications: Current Medications Acetaminophen (Tylenol) 650 mg GT Q6HR PRN PRN Reason: Pain or Fever >101 Stop: 06/18/18 08:48 Last Admin: 04/21/18 09:00 Dose: 650 mg Albuterol/Ipratropium (Duoneb Neb) 3 ml HHN Q2H PRN PRN Reason: Shortness of Breath Stop: 06/18/18 08:48 Last Admin: 04/19/18 12:45 Dose: 3 ml Albuterol/Ipratropium (Duoneb Neb) 3 ml HHN Q6HRT [facility] Stop: 06/18/18 08:59 Last Admin: 04/21/18 14:01 Dose: 3 ml Baclofen (Lioresal) 5 mg GT HS [facility] Stop: 06/18/18 20:59 Last Admin: 04/20/18 20:42 Dose: 5 mg Docusate Sodium (Colace) 200 mg PO HS [facility] Stop: 06/19/18 08:59 Last Admin: 04/20/18 20:42 Dose: 200 mg Dorzolamide HCl (Trusopt 2% Ophth Soln) 1 drop EACH EYE BID [facility] Stop: 06/18/18 08:59 Last Admin: 04/21/18 09:22 Dose: 1 drop Fluoxetine HCl (Prozac) 20 mg GT [facility]ILY [facility]; Protocol Stop: 06/18/18 08:59 Last Admin: 04/21/18 09:23 Dose: 20 mg Folic Acid (Folate) 1 mg GT DAILY [facility] Stop: 06/18/18 08:59 Last Admin: 04/21/18 09:21 Dose: 1 mg Azithromycin 500 mg/ Sodium (Chloride) 250 mls @ 250 mls/hr IV Q24HR [facility] Stop: 06/18/18 21:59 Last Infusion: 04/20/18 22:00 Dose: Infused Meropenem 1 gm/ Sodium (Chloride) 100 mls @ 100 mls/hr IV Q8H [facility] Stop: 06/18/18 11:59 Last Infusion: 04/21/18 13:00 Dose: Infused Insulin Aspart (Novolog Insulin Sliding Scale) 0 units SUBQ Q6HR [facility]; Protocol Stop: 06/18/18 00:00 Last Admin: 04/21/18 11:21 Dose: 2 units Lactobacillus Rhamnosus (Culturelle 15b) 1 each GT DAILY [facility] Stop: 06/19/18 08:59 Last Admin: 04/21/18 09:21 Dose: 1 each Levetiracetam (Keppra) 500 mg GT BID [facility] Stop: 06/18/18 08:59 Last Admin: 04/21/18 09:21 Dose: 500 mg Metoclopramide HCl (Reglan) 5 mg GT Q8H [facility] Stop: 06/18/18 09:59 Last Admin: 08/21/18 09:21 Dose: 5 mg Metoprolol Tartrate (Lopressor) 25 mg GT BID [facility] Stop: 06/18/18 08:59 Last Admin: 04/21/18 09:21 Dose: 25 mg Miscellaneous (Probiotic Screen) 1 ea MC PRN PRN PRN Reason: PROTOCOL Stop: 06/19/18 09:29 General: no acute distress HEENT: atraumatic, normocephalic, PERRLA, EOMI, no moist mucous membrane Neck: supple, no thyromegaly Cardiovascular: S1S2, regular Lungs: clear to percussion, rhonchi Abdomen: soft, no tender, no distended, no mass Extremities: no cyanosis, no clubbing, no edema Neurological: awake, alert Skin: intact Infectious Disease Assmt/Plan - Assessment Assessment: 1. Leukocytosis. Suspect sepsis. Improved. 2. Pneumonia. 3. UTI. 4. Respirations insufficiency on T bar oxygen. 5. Diabetes mellitus type 2. 6. Protein calorie malnutrition. 7. Decubitus ulcer. Sacral stage II. 8. History of UTI, ESBL Escherichia coli urine infection. 9. Diabetes mellitus type 2. 10. CVA. 11. hypertension, 12. Hyperlipidemia. 13. Interstitial lung disease. 14. candiduria. - Plan Plan: Change antibiotics to levaquin. start diflucan. Nutritional Asmnt/Malnutr-PDOC - Dietary Evaluation Malnutrition Findings (Please click <Entered> for more info): Nutritional Asmnt/Malnutrition Start: 04/20/18 16: 45 Text: Status: Complete Freq: Protocol: Document 04/20/18 16:45 REBECCA (Rec: 04/20/18 17:[address] [facility] [id number]) Nutritional Asmnt/Malnutrition Patient General Information Nutritional Screening High Risk Consult Diagnosis PNA Pertinent Medical Hx/Surgical Hx HTN, DM, CAD, CHF, Asthma/COPD , CVA/TIA, arthritis, dementia , trach placement Subjective Information Consult received for sergio 11 . Pt seen resting in bed at time of visit, trach to vent. TF was running at 50ml/hr. Per RN, pt was tolerating TF, residual 80ml this morning. Current Diet Order/ Nutrition Support vital AF 1.2 at 55ml/hr x 20hrs Pertinent Medications colace, folate, novolog, culturelle, reglan Pertinent Labs 8/19 BUN 42, Glucose 148, POC 150 04/19-04/20 POC 138-184 Nutritional Hx/Data Height 1.75 m Height (Calculated Centimeters) 175.3 Current Weight (lbs) 49.895 kg Weight (Calculated Kilograms) 49.9 Weight (Calculated Grams) 80307.2 Porter Body Weight 160 Body Mass Index (BMI) 16.2 Weight Status Underweight GI Symptoms GI Symptoms None Difficult in: None Usual diet at home glucerna 1.5 60ml/hr x 20hrs at care facility per chart Skin Integrity/Comment: abrasion to right toe and elft knee, scar to sacrum Estimated Nutritional Goals BEE in Kcals: Using Current wt Calories/Kcals/Kg 27-32 Kcals Calculated 9493-0586 Protein: Using Current wt Protein g/k.2-1.4 monitor renal labs Protein Calculated 60-70 Fluid: ml 1500-1750ml (1ml/kcal) Nutritional Problem 1. Problem Problem altered nutrition related labs Etiology hx of DM Signs/Symptoms: Glucose 148, POC 150 Intervention/Recommendation Comments 1. Continue with current TF regimen. It provides 1350kcal, 82g protein, 892ml free water , meeting 100% of nutritional needs 2. Monitor TF rate, tolerance, wt, skin integrity and labs 3. F/U as moderate risk in 3-5 days, 04/23-04/25 Expected Outcomes/Goals Expected Outcomes/Goals 1. Pt to meet at least 75% of nutritional needs via nutrition support with tolerance 2. Wt stability, skin to remain intact, labs to approach WNL.
[2018-04-21] MEDS: Levofloxacin 500mg/100mL 500 MG/100 ML BAG IV SCH (15:19)
[2018-04-22] MEDS: INSULIN ASPART SLIDING SCALE 100 UNITS/ML UNIT SUBQ SCH ×4 (00:08→18:16)
[2018-04-22] MEDS: Albuterol/Ipratropium Neb 3 ML AERS HHN SCH ×4 (00:58→19:11)
[2018-04-22 04:56] LABS: HEMATOCRIT 28.3 % (41.0-60); HEMOGLOBIN 9.6 gm/dL (12-16); MEAN CELL VOLUME 89.2 fl (80-99); MEAN CORPUSCULAR HEMOGLOBIN 30.2 pg (27.0-31.0); MEAN CORPUSCULAR HGB CONC 33.8 pg (28.0-36.0); MEAN PLATELET VOLUME 8.8 fl; PLATELET COUNT 280 Th/cmm (150-400); RED BLOOD COUNT 3.17 Mil/cmm (3.80-5.80); RED CELL DISTRIBUTION WIDTH 15.7 % (11.5-20.0)
[2018-04-22 05:08] LABS: ALB/GLOB RATIO 0.9 (1.0-1.8); ALBUMIN 3.3 gm/dL (4.2-5.5); BILIRUBIN,TOTAL 0.2 mg/dL (0.3-1.0); BUN - UREA NITROGEN 38 mg/dL (7-25); CALCIUM SERUM 9.7 mg/dL (8.6-10.3); CARBON DIOXIDE 27.1 mEq/L (21.0-31.0); GFR AFRICAN-AMERICAN > 60.0 ml/min (>90); GFR NON AFRICAN-AMERICAN > 60.0 ml/min; GLUCOSE 177 mg/dL (70-105); SGOT 16 U/L (13-39); SGPT/ALT 12 U/L (7-52); TOTAL PROTEIN,SERUM 6.8 gm/dL (6.0-8.3)
[2018-04-22 06:22] LABS: ALKALINE PHOSPHATASE 57 U/L (34-104)
[2018-04-22 06:28] LABS: ANION GAP 15.3 (7.0-16.0); CHLORIDE 106 mEq/L (98-107); POTASSIUM SERUM 3.4 mEq/L (3.5-5.1); SODIUM SERUM 145 mEq/L (136-145)
[2018-04-22 07:24] LABS: BAND NEUTROPHILE 1 % (0-10); LYMPHOCYTE 10 % (20-50); MONOCYTE 2 % (2-10); NEUTROPHILS 86 % (40-80)
[2018-04-22 07:25] LABS: BASOPHIL 0 % (0-3); EOSINOPHIL 1 % (0-5)
[2018-04-22] MEDS: Lactobacillus Rhamnosus GG 15 Billion CFU CAP.SPRINK GT SCH (08:14)
[2018-04-22] MEDS: Levetiracetam 500 mg/5mL 5mL UDSyr *for ORAL USE ONLY GT SCH ×2 (08:18→17:10)
[2018-04-22] MEDS ORDERED: Potassium Chloride Elixir 20 mEq /15 mL UDC GT ONE (13:43)
--- NOTE | 2018-04-22 14:13 | General Progress Note ---
Subjective - Review of Systems Events since last encounter: no fever no signs of pain Objective - Results Result Diagrams: 04/22/18 04:30 04/22/18 04:30 Recent Labs: Laboratory Last Values WBC 11.0 Th/cmm (4.8-10.8) H 04/22/18 04:30 RBC 3.17 Mil/cmm (3.80-5.80) L 04/22/18 04:30 Hgb 9.6 gm/dL (12-16) L 04/22/18 04:30 Hct 28.3 % (41.0-60) L 04/22/18 04:30 MCV 89.2 fl (80-99) 04/22/18 04:30 MCH 30.2 pg (27.0-31.0) 04/22/18 04:30 MCHC Differential 33.8 pg (28.0-36.0) 04/22/18 04:30 RDW 15.7 % (11.5-20.0) 04/22/18 04:30 Plt Count 280 Th/cmm (150-400) 04/22/18 04:30 MPV 8.8 fl 04/22/18 04:30 Add Manual Diff YES 04/22/18 04:30 Neutrophils % 73.4 % (40.0-80.0) 04/21/18 04:15 Band Neutrophils % 1 % (0-10) 04/22/18 04:30 Lymphocytes % 12.6 % (20.0-50.0) L 04/21/18 04:15 Monocytes % 10.1 % (2.0-10.0) H 04/21/18 04:15 Eosinophils % 3.6 % (0.0-5.0) 04/21/18 04:15 Basophils % 0.3 % (0.0-2.0) 04/21/18 04:15 Neutrophils (Manual) 86 % (40-80) H 04/22/18 04:30 Lymphocytes 10 % (20-50) L 04/22/18 04:30 Monocytes 2 % (2-10) 04/22/18 04:30 Eosinophils 1 % (0-5) 04/22/18 04:30 Basophils 0 % (0-3) 04/22/18 04:30 Platelet Estimate ADEQUATE (NORMAL) 04/19/18 04:10 PT 9.9 SECONDS (9.5-11.5) 04/18/18 19:45 INR 0.95 (0.5-1.4) 04/18/18 19:45 Specimen Source arterial 04/18/18 19:42 Sample Site left brachial 04/18/18 19:42 pH 7.42 (7.35-7.45) 04/18/18 19:42 pCO2 45.0 mmHg (35.0-45.0) 04/18/18 19:42 pO2 62.0 mmHg (80.0-100.0) L 04/18/18 19:42 HCO3 28.0 mEq/L (20.0-26.0) H 04/18/18 19:42 Base Excess 4.1 mEq/L (-3.0-3.0) H 04/18/18 19:42 O2 Saturation 92.0 % (92.0-100.0) 04/18/18 19:42 Angel Test yes 04/18/18 19:42 Vent Rate n/a 04/18/18 19:42 Inspired O2 21 04/18/18 19:42 Tidal Volume n/a 04/18/18 19:42 PEEP n/a 04/18/18 19:42 Pressure (ins/psv/peep) n/a 04/18/18 19:42 Critical Value abroedel 04/18/18 19:42 Sodium 145 mEq/L (136-145) 04/22/18 04:30 Potassium 3.4 mEq/L (3.5-5.1) L 04/22/18 04:30 Chloride 106 mEq/L (98-107) 04/22/18 04:30 Carbon Dioxide 27.1 mEq/L (21.0-31.0) 04/22/18 04:30 Anion Gap 15.3 (7.0-16.0) 04/22/18 04:30 BUN 38 mg/dL (7-25) H 04/22/18 04:30 Creatinine 1.0 mg/dL (0.7-1.3) 04/22/18 04:30 Est GFR ( Amer) > 60.0 ml/min (>90) 04/22/18 04:30 Est GFR (Non-Af Amer) > 60.0 ml/min 04/22/18 04:30 BUN/Creatinine Ratio 38.0 04/22/18 04:30 Glucose 177 mg/dL (70-105) H 04/22/18 04:30 POC Glucose 162 MG/DL (70 - 105) H 04/22/18 11:42 Whole Bld Lactic Acid 1.81 mmol/L (0.60-1.99) 04/18/18 21:36 Calcium 9.7 mg/dL (8.6-10.3) 04/22/18 04:30 Total Bilirubin 0.2 mg/dL (0.3-1.0) L 04/22/18 04:30 AST 16 U/L (13-39) 04/22/18 04:30 ALT 12 U/L (7-52) 04/22/18 04:30 Alkaline Phosphatase 57 U/L (34-104) 04/22/18 04:30 Troponin I 0.03 ng/mL (0.01-0.05) 04/18/18 19:45 B-Natriuretic Peptide 230.0 pg/mL (5.0-100.0) H 04/18/18 19:45 Total Protein 6.8 gm/dL (6.0-8.3) 04/22/18 04:30 Albumin 3.3 gm/dL (4.2-5.5) L 04/22/18 04:30 Globulin 3.5 gm/dL 04/22/18 04:30 Albumin/Globulin Ratio 0.9 (1.0-1.8) L 04/22/18 04:30 TSH 4.06 uIU/ml (0.34-5.60) 04/18/18 19:45 Urine Source MIDSTREAM 04/19/18 04:15 Urine Color YELLOW 04/19/18 04:15 Urine Clarity HAZY (CLEAR) 04/19/18 04:15 Urine pH 6.0 (4.6 - 8.0) 04/19/18 04:15 Ur Specific [place] 1.015 (1.005-1.030) 04/19/18 04:15 Urine Protein 100 mg/dL (NEGATIVE) H 04/19/18 04:15 Urine Glucose (UA) NEGATIVE mg/dL (NEGATIVE) 04/19/18 04:15 Urine Ketones TRACE mg/dL (NEGATIVE) 04/19/18 04:15 Urine Blood NEGATIVE (NEGATIVE) 04/19/18 04:15 Urine Nitrate NEGATIVE (NEGATIVE) 04/19/18 04:15 Urine Bilirubin NEGATIVE (NEGATIVE) 04/19/18 04:15 Urine Urobilinogen 0.2 E.U./dL (0.2 - 1.0) 04/19/18 04:15 Ur Leukocyte Esterase MODERATE (NEGATIVE) H 04/19/18 04:15 Urine RBC 0-2 /hpf (0-5) H 04/19/18 04:15 Urine WBC 25-50 /hpf (0-5) H 04/19/18 04:15 Ur Epithelial Cells FEW /lpf (FEW) 04/19/18 04:15 Urine Bacteria FEW /hpf (NONE SEEN) 04/19/18 04:15 Urine Yeast FEW /hpf (NONE SEEN) H 04/19/18 04:15 - Physical Exam Vitals and I&O: Vital Signs Temp 99.7 F 04/22/18 11:00 Pulse 75 04/22/18 13:47 Resp 18 04/22/18 13:47 BP 150/73 04/22/18 11:00 Pulse Ox 99 04/22/18 14:00 Intake & Output 04/21/18 04/22/18 04/22/18 18:59 06:59 18:59 Intake Total 1150 635 Output Total 550 300 Balance 600 335 Weight (lbs) 49.186 kg 48.988 kg Intake: Intake, IV Amount 200 Levofloxacin 500mg/100mL 100 500 mg In 100 ml @ 100 mls/hr IV Q24HR [facility] Rx#: [id number] Meropenem 1 gm In Sodium 100 Chloride 0.9% 100 ml @ 100 mls/hr IV Q8H [facility] Rx# :[id number] Tube Feeding 550 385 Other 400 250 Output: Urine 550 300 Other: # Bowel Movements 2 1 Stool Characteristics Soft Soft Green Brown Weight Source Bedscale Bedscale Active Medications: Current Medications Acetaminophen (Tylenol) 650 mg GT Q6HR PRN PRN Reason: Pain or Fever >101 Stop: 06/18/18 08:48 Last Admin: 04/22/18 01:44 Dose: 650 mg Albuterol/Ipratropium (Duoneb Neb) 3 ml HHN Q2H PRN PRN Reason: Shortness of Breath Stop: 06/18/18 08:48 Last Admin: 04/19/18 12:45 Dose: 3 ml Albuterol/Ipratropium (Duoneb Neb) 3 ml HHN Q6HRT [facility] Stop: 06/18/18 08:59 Last Admin: 04/22/18 13:47 Dose: 3 ml Baclofen (Lioresal) 5 mg GT HS [facility] Stop: 06/18/18 20:59 Last Admin: 04/21/18 20:29 Dose: 5 mg Docusate Sodium (Colace) 200 mg PO HS [facility] Stop: 06/19/18 08:59 Last Admin: 04/21/18 20:30 Dose: 200 mg Dorzolamide HCl (Trusopt 2% Ophth Soln) 1 drop EACH EYE BID [facility] Stop: 06/18/18 08:59 Last Admin: 04/22/18 10:12 Dose: 1 drop Fluconazole (Diflucan) 100 mg PO DAILY [facility] Stop: 06/20/18 14:59 Last Admin: 04/22/18 08:14 Dose: 100 mg Fluoxetine HCl (Prozac) 20 mg GT DAILY [facility]; Protocol Stop: 06/18/18 08:59 Last Admin: 04/22/18 08:18 Dose: 20 mg Folic Acid (Folate) 1 mg GT DAILY [facility] Stop: 06/18/18 08:59 Last Admin: 04/22/18 08:14 Dose: 1 mg Levofloxacin (Levaquin Pb) 500 mg in 100 mls @ 100 mls/hr IV Q24HR [facility] Stop: 06/20/18 14:59 Last Infusion: 04/21/18 16:20 Dose: Infused Insulin Aspart (Novolog Insulin Sliding Scale) 0 units SUBQ Q6HR [facility]; Protocol Stop: 06/18/18 00:00 Last Admin: 04/22/18 12:01 Dose: 2 units Lactobacillus Rhamnosus (Culturelle 15b) 1 each GT DAILY [facility] Stop: 06/19/18 08:59 Last Admin: 04/22/18 08:14 Dose: 1 each Levetiracetam (Keppra) 500 mg GT BID [facility] Stop: 06/18/18 08:59 Last Admin: 04/22/18 08:18 Dose: 500 mg Metoclopramide HCl (Reglan) 5 mg GT Q8H [facility] Stop: 06/18/18 09:59 Last Admin: 04/22/18 09:56 Dose: 5 mg Metoprolol Tartrate (Lopressor) 25 mg GT BID [facility] Stop: 06/18/18 08:59 Last Admin: 04/22/18 08:14 Dose: 25 mg Miscellaneous (Probiotic Screen) 1 ea MC PRN PRN PRN Reason: PROTOCOL Stop: 06/19/18 09:29 Nutritional Asmnt/Malnutr-PDOC - Dietary Evaluation Malnutrition Findings (Please click <Entered> for more info): Nutritional Asmnt/Malnutrition Start: 04/20/18 16: 45 Text: Status: Complete Freq: Protocol: Document 04/20/18 16:45 [email or web address] (Rec: 04/20/18 17:04 HEN [email or web address]) Nutritional Asmnt/Malnutrition Patient General Information Nutritional Screening High Risk Consult Diagnosis PNA Pertinent Medical Hx/Surgical Hx HTN, DM, CAD, CHF, Asthma/COPD , CVA/TIA, arthritis, dementia , trach placement Subjective Information Consult received for sergio Phan . Pt seen resting in bed at time of visit, trach to vent. TF was running at 50ml/hr. Per RN, pt was tolerating TF, residual 80ml this morning. Current Diet Order/ Nutrition Support vital AF 1.2 at 55ml/hr x 20hrs Pertinent Medications colace, folate, novolog, culturelle, reglan Pertinent Labs 04/19 BUN 42, Glucose 148, POC 150 04/19-04/20 POC 138-184 Nutritional Hx/Data Height 1.75 m Height (Calculated Centimeters) 175.3 Current Weight (lbs) 49.895 kg Weight (Calculated Kilograms) 49.9 Weight (Calculated Grams) 26031.2 [place] Body Weight 160 Body Mass Index (BMI) 16.2 Weight Status Underweight GI Symptoms GI Symptoms None Difficult in: None Usual diet at home glucerna 1.5 60ml/hr x 20hrs at care facility per chart Skin Integrity/Comment: abrasion to right toe and elft knee, scar to sacrum Estimated Nutritional Goals BEE in Kcals: Using Current wt Calories/Kcals/Kg 27-32 Kcals Calculated 3748-9526 Protein: Using Current wt Protein g/k.2-1.4 monitor renal labs Protein Calculated 60-70 Fluid: ml 1500-1750ml (1ml/kcal) Nutritional Problem 1. Problem Problem altered nutrition related labs Etiology hx of DM Signs/Symptoms: Glucose 148, POC 150 Intervention/Recommendation Comments 1. Continue with current TF regimen. It provides 1350kcal, 82g protein, 892ml free water , meeting 100% of nutritional needs 2. Monitor TF rate, tolerance, wt, skin integrity and labs 3. F/U as moderate risk in 3-5 days, 04/23-04/25 Expected Outcomes/Goals Expected Outcomes/Goals 1. Pt to meet at least 75% of nutritional needs via nutrition support with tolerance 2. Wt stability, skin to remain intact, labs to approach WNL.
[2018-04-22] MEDS: Levofloxacin 500mg/100mL 500 MG/100 ML BAG IV SCH (14:29)
[2018-04-22] MEDS ORDERED: Piperacillin Sodium/Tazobact 3.375 gm Vial IV ONE (20:48)
[2018-04-23] MEDS: INSULIN ASPART SLIDING SCALE 100 UNITS/ML UNIT SUBQ SCH ×4 (00:03→18:09)
[2018-04-23] MEDS ORDERED: Piperacillin Sodium/Tazobact 3.375 gm Vial IV ONE ×2 (00:43→05:54)
[2018-04-23] MEDS: Albuterol/Ipratropium Neb 3 ML AERS HHN SCH ×4 (00:50→18:56)
[2018-04-23] MEDS: Levetiracetam 500 mg/5mL 5mL UDSyr *for ORAL USE ONLY GT SCH ×2 (08:34→20:03)
[2018-04-23] MEDS: Lactobacillus Rhamnosus GG 15 Billion CFU CAP.SPRINK GT SCH (08:34)
--- NOTE | 2018-04-23 11:41 | General Progress Note ---
Subjective - Review of Systems Events since last encounter: no signs of pain no distress Objective - Results Result Diagrams: 04/22/18 04:30 04/22/18 04:30 Recent Labs: Laboratory Last Values WBC 11.0 Th/cmm (4.8-10.8) H 04/22/18 04:30 RBC 3.17 Mil/cmm (3.80-5.80) L 04/22/18 04:30 Hgb 9.6 gm/dL (12-16) L 04/22/18 04:30 Hct 28.3 % (41.0-60) L 04/22/18 04:30 MCV 89.2 fl (80-99) 04/22/18 04:30 MCH 30.2 pg (27.0-31.0) 04/22/18 04:30 MCHC Differential 33.8 pg (28.0-36.0) 04/22/18 04:30 RDW 15.7 % (11.5-20.0) 04/22/18 04:30 Plt Count 280 Th/cmm (150-400) 04/22/18 04:30 MPV 8.8 fl 04/22/18 04:30 Add Manual Diff YES 04/22/18 04:30 Neutrophils % 73.4 % (40.0-80.0) 04/21/18 04:15 Band Neutrophils % 1 % (0-10) 04/22/18 04:30 Lymphocytes % 12.6 % (20.0-50.0) L 04/21/18 04:15 Monocytes % 10.1 % (2.0-10.0) H 04/21/18 04:15 Eosinophils % 3.6 % (0.0-5.0) 04/21/18 04:15 Basophils % 0.3 % (0.0-2.0) 04/21/18 04:15 Neutrophils (Manual) 86 % (40-80) H 04/22/18 04:30 Lymphocytes 10 % (20-50) L 04/22/18 04:30 Monocytes 2 % (2-10) 04/22/18 04:30 Eosinophils 1 % (0-5) 04/22/18 04:30 Basophils 0 % (0-3) 04/22/18 04:30 Platelet Estimate ADEQUATE (NORMAL) 04/19/18 04:10 PT 9.9 SECONDS (9.5-11.5) 04/18/18 19:45 INR 0.95 (0.5-1.4) 04/18/18 19:45 Specimen Source arterial 04/18/18 19:42 Sample Site left brachial 04/18/18 19:42 pH 7.42 (7.35-7.45) 04/18/18 19:42 pCO2 45.0 mmHg (35.0-45.0) 04/18/18 19:42 pO2 62.0 mmHg (80.0-100.0) L 04/18/18 19:42 HCO3 28.0 mEq/L (20.0-26.0) H 04/18/18 19:42 Base Excess 4.1 mEq/L (-3.0-3.0) H 04/18/18 19:42 O2 Saturation 92.0 % (92.0-100.0) 04/18/18 19:42 Angel Test yes 04/18/18 19:42 Vent Rate n/a 04/18/18 19:42 Inspired O2 21 04/18/18 19:42 Tidal Volume n/a 04/18/18 19:42 PEEP n/a 04/18/18 19:42 Pressure (ins/psv/peep) n/a 04/18/18 19:42 Critical Value abroedel 04/18/18 19:42 Sodium 145 mEq/L (136-145) 04/22/18 04:30 Potassium 3.4 mEq/L (3.5-5.1) L 04/22/18 04:30 Chloride 106 mEq/L (98-107) 04/22/18 04:30 Carbon Dioxide 27.1 mEq/L (21.0-31.0) 04/22/18 04:30 Anion Gap 15.3 (7.0-16.0) 04/22/18 04:30 BUN 38 mg/dL (7-25) H 04/22/18 04:30 Creatinine 1.0 mg/dL (0.7-1.3) 04/22/18 04:30 Est GFR ( Amer) > 60.0 ml/min (>90) 04/22/18 04:30 Est GFR (Non-Af Amer) > 60.0 ml/min 04/22/18 04:30 BUN/Creatinine Ratio 38.0 04/22/18 04:30 Glucose 177 mg/dL (70-105) H 04/22/18 04:30 POC Glucose 165 MG/DL (70 - 105) H 04/22/18 17:59 Whole Bld Lactic Acid 1.81 mmol/L (0.60-1.99) 04/18/18 21:36 Calcium 9.7 mg/dL (8.6-10.3) 04/22/18 04:30 Total Bilirubin 0.2 mg/dL (0.3-1.0) L 04/22/18 04:30 AST 16 U/L (13-39) 04/22/18 04:30 ALT 12 U/L (7-52) 04/22/18 04:30 Alkaline Phosphatase 57 U/L (34-104) 04/22/18 04:30 Troponin I 0.03 ng/mL (0.01-0.05) 04/18/18 19:45 B-Natriuretic Peptide 230.0 pg/mL (5.0-100.0) H 04/18/18 19:45 Total Protein 6.8 gm/dL (6.0-8.3) 04/22/18 04:30 Albumin 3.3 gm/dL (4.2-5.5) L 04/22/18 04:30 Globulin 3.5 gm/dL 04/22/18 04:30 Albumin/Globulin Ratio 0.9 (1.0-1.8) L 04/22/18 04:30 TSH 4.06 uIU/ml (0.34-5.60) 04/18/18 19:45 Urine Source MIDSTREAM 04/19/18 04:15 Urine Color YELLOW 04/19/18 04:15 Urine Clarity HAZY (CLEAR) 04/19/18 04:15 Urine pH 6.0 (4.6 - 8.0) 04/19/18 04:15 Ur Specific [place] 1.015 (1.005-1.030) 04/19/18 04:15 Urine Protein 100 mg/dL (NEGATIVE) H 04/19/18 04:15 Urine Glucose (UA) NEGATIVE mg/dL (NEGATIVE) 04/19/18 04:15 Urine Ketones TRACE mg/dL (NEGATIVE) 04/19/18 04:15 Urine Blood NEGATIVE (NEGATIVE) 04/19/18 04:15 Urine Nitrate NEGATIVE (NEGATIVE) 04/19/18 04:15 Urine Bilirubin NEGATIVE (NEGATIVE) 04/19/18 04:15 Urine Urobilinogen 0.2 E.U./dL (0.2 - 1.0) 04/19/18 04:15 Ur Leukocyte Esterase MODERATE (NEGATIVE) H 04/19/18 04:15 Urine RBC 0-2 /hpf (0-5) H 04/19/18 04:15 Urine WBC 25-50 /hpf (0-5) H 04/19/18 04:15 Ur Epithelial Cells FEW /lpf (FEW) 04/19/18 04:15 Urine Bacteria FEW /hpf (NONE SEEN) 04/19/18 04:15 Urine Yeast FEW /hpf (NONE SEEN) H 04/19/18 04:15 - Physical Exam Vitals and I&O: Vital Signs Temp 98 F 04/23/18 03:00 Pulse 94 04/23/18 08:34 Resp 22 04/23/18 06:39 BP 127/76 04/23/18 08:34 Pulse Ox 96 04/23/18 06:39 Intake & Output 04/22/18 04/23/18 04/23/18 18:59 06:59 18:59 Intake Total 100 1230 Output Total 850 Balance 100 380 Weight (lbs) 48.988 kg Intake: Intake, IV Amount 100 150 Levofloxacin 500mg/100mL 100 500 mg In 100 ml @ 100 mls/hr IV Q24HR [facility] Rx#: [id number] Piperacillin Sodium/ 150 Tazobact 3.375 gm In Dextrose 5% 50 ml @ 100 mls/hr IV Q6HR [facility] Rx#: [id number] Tube Feeding 930 Other 150 Output: Urine 850 Other: # Bowel Movements 4 Stool Characteristics Soft Liquid Liquid Brown Brown Weight Source Bedscale Active Medications: Current Medications Acetaminophen (Tylenol) 650 mg GT Q6HR PRN PRN Reason: Pain or Fever >101 Stop: 06/18/18 08:48 Last Admin: 04/23/18 00:47 Dose: 650 mg Albuterol/Ipratropium (Duoneb Neb) 3 ml HHN Q2H PRN PRN Reason: Shortness of Breath Stop: 06/18/18 08:48 Last Admin: 04/19/18 12:45 Dose: 3 ml Albuterol/Ipratropium (Duoneb Neb) 3 ml HHN Q6HRT [facility] Stop: 06/18/18 08:59 Last Admin: 04/23/18 06:39 Dose: 3 ml Baclofen (Lioresal) 5 mg GT HS [facility] Stop: 06/18/18 20:59 Last Admin: 04/22/18 20:53 Dose: 5 mg Docusate Sodium (Colace) 200 mg PO HS [facility] Stop: 06/19/18 08:59 Last Admin: 04/22/18 20:53 Dose: 200 mg Dorzolamide HCl (Trusopt 2% Ophth Soln) 1 drop EACH EYE BID [facility] Stop: 06/18/18 08:59 Last Admin: 04/23/18 08:36 Dose: 1 drop Fluconazole (Diflucan) 100 mg PO DAILY [facility] Stop: 06/20/18 14:59 Last Admin: 04/23/18 08:34 Dose: 100 mg Fluoxetine HCl (Prozac) 20 mg GT DAILY [facility]; Protocol Stop: 06/18/18 08:59 Last Admin: 04/23/18 08:35 Dose: 20 mg Folic Acid (Folate) 1 mg GT DAILY [facility] Stop: 06/18/18 08:59 Last Admin: 04/23/18 08:34 Dose: 1 mg Piperacillin Sod/Tazobactam (Sod 3.375 gm/ Dextrose) 50 mls @ 100 mls/hr IV Q6HR [facility] Stop: 06/21/18 19:59 Last Infusion: 04/23/18 06:30 Dose: Infused Insulin Aspart (Novolog Insulin Sliding Scale) 0 units SUBQ Q6HR [facility]; Protocol Stop: 06/18/18 00:00 Last Admin: 04/23/18 06:03 Dose: 2 units Lactobacillus Rhamnosus (Culturelle 15b) 1 each GT DAILY [facility] Stop: 06/19/18 08:59 Last Admin: 04/23/18 08:34 Dose: 1 each Levetiracetam (Keppra) 500 mg GT BID [facility] Stop: 06/18/18 08:59 Last Admin: 04/23/18 08:34 Dose: 500 mg Metoclopramide HCl (Reglan) 5 mg GT Q8H [facility] Stop: 06/18/18 09:59 Last Admin: 08/23/18 01:08 Dose: 5 mg Metoprolol Tartrate (Lopressor) 25 mg GT BID [facility] Stop: 06/18/18 08:59 Last Admin: 04/23/18 08:34 Dose: 25 mg Miscellaneous (Probiotic Screen) 1 ea MC PRN PRN PRN Reason: PROTOCOL Stop: 06/19/18 09:29 Miscellaneous (Zosyn Iv Per Pharmacy) 1 ea MC PRN PRN PRN Reason: PROTOCOL Stop: 06/21/18 17:59 Nutritional Asmnt/Malnutr-PDOC - Dietary Evaluation Malnutrition Findings (Please click <Entered> for more info): Nutritional Asmnt/Malnutrition Start: 04/20/18 16: 45 Text: Status: Complete Freq: Protocol: Document 04/20/18 16:45 SABI (Rec: 04/20/18 17:04 SABI [email or web address]) Nutritional Asmnt/Malnutrition Patient General Information Nutritional Screening High Risk Consult Diagnosis PNA Pertinent Medical Hx/Surgical Hx HTN, DM, CAD, CHF, Asthma/COPD , CVA/TIA, arthritis, dementia , trach placement Subjective Information Consult received for sergio Phan . Pt seen resting in bed at time of visit, trach to vent. TF was running at 50ml/hr. Per RN, pt was tolerating TF, residual 80ml this morning. Current Diet Order/ Nutrition Support vital AF 1.2 at 55ml/hr x 20hrs Pertinent Medications colace, folate, novolog, culturelle, reglan Pertinent Labs 04/19 BUN 42, Glucose 148, POC 150 04/19-04/20 POC 138-184 Nutritional Hx/Data Height 1.75 m Height (Calculated Centimeters) 175.3 Current Weight (lbs) 49.895 kg Weight (Calculated Kilograms) 49.9 Weight (Calculated Grams) 33751.2 [place] Body Weight 160 Body Mass Index (BMI) 16.2 Weight Status Underweight GI Symptoms GI Symptoms None Difficult in: None Usual diet at home glucerna 1.5 60ml/hr x 20hrs at care facility per chart Skin Integrity/Comment: abrasion to right toe and elft knee, scar to sacrum Estimated Nutritional Goals BEE in Kcals: Using Current wt Calories/Kcals/Kg 27-32 Kcals Calculated 7406-4861 Protein: Using Current wt Protein g/k.2-1.4 monitor renal labs Protein Calculated 60-70 Fluid: ml 1500-1750ml (1ml/kcal) Nutritional Problem 1. Problem Problem altered nutrition related labs Etiology hx of DM Signs/Symptoms: Glucose 148, POC 150 Intervention/Recommendation Comments 1. Continue with current TF regimen. It provides 1350kcal, 82g protein, 892ml free water , meeting 100% of nutritional needs 2. Monitor TF rate, tolerance, wt, skin integrity and labs 3. F/U as moderate risk in 3-5 days, 04/23-04/25 Expected Outcomes/Goals Expected Outcomes/Goals 1. Pt to meet at least 75% of nutritional needs via nutrition support with tolerance 2. Wt stability, skin to remain intact, labs to approach WNL.
--- NOTE | 2018-04-23 12:36 | Infectious Disease Prog Note ---
Infectious Disease Subjective - Review of Systems Service Date: 04/23/18 Subjective: There is no new change, no fever. Infectious Disease Objective - Results Result Diagrams: 04/22/18 04:30 04/22/18 04:30 Recent Labs: Laboratory Last Values WBC 11.0 Th/cmm (4.8-10.8) H 04/22/18 04:30 RBC 3.17 Mil/cmm (3.80-5.80) L 04/22/18 04:30 Hgb 9.6 gm/dL (12-16) L 04/22/18 04:30 Hct 28.3 % (41.0-60) L 04/22/18 04:30 MCV 89.2 fl (80-99) 04/22/18 04:30 MCH 30.2 pg (27.0-31.0) 04/22/18 04:30 MCHC Differential 33.8 pg (28.0-36.0) 04/22/18 04:30 RDW 15.7 % (11.5-20.0) 04/22/18 04:30 Plt Count 280 Th/cmm (150-400) 04/22/18 04:30 MPV 8.8 fl 04/22/18 04:30 Add Manual Diff YES 04/22/18 04:30 Neutrophils % 73.4 % (40.0-80.0) 04/21/18 04:15 Band Neutrophils % 1 % (0-10) 04/22/18 04:30 Lymphocytes % 12.6 % (20.0-50.0) L 04/21/18 04:15 Monocytes % 10.1 % (2.0-10.0) H 04/21/18 04:15 Eosinophils % 3.6 % (0.0-5.0) 04/21/18 04:15 Basophils % 0.3 % (0.0-2.0) 04/21/18 04:15 Neutrophils (Manual) 86 % (40-80) H 04/22/18 04:30 Lymphocytes 10 % (20-50) L 04/22/18 04:30 Monocytes 2 % (2-10) 04/22/18 04:30 Eosinophils 1 % (0-5) 04/22/18 04:30 Basophils 0 % (0-3) 04/22/18 04:30 Platelet Estimate ADEQUATE (NORMAL) 04/19/18 04:10 PT 9.9 SECONDS (9.5-11.5) 04/18/18 19:45 INR 0.95 (0.5-1.4) 04/18/18 19:45 Specimen Source arterial 04/18/18 19:42 Sample Site left brachial 04/18/18 19:42 pH 7.42 (7.35-7.45) 04/18/18 19:42 pCO2 45.0 mmHg (35.0-45.0) 04/18/18 19:42 pO2 62.0 mmHg (80.0-100.0) L 04/18/18 19:42 HCO3 28.0 mEq/L (20.0-26.0) H 04/18/18 19:42 Base Excess 4.1 mEq/L (-3.0-3.0) H 04/18/18 19:42 O2 Saturation 92.0 % (92.0-100.0) 04/18/18 19:42 Angel Test yes 04/18/18 19:42 Vent Rate n/a 04/18/18 19:42 Inspired O2 21 04/18/18 19:42 Tidal Volume n/a 04/18/18 19:42 PEEP n/a 04/18/18 19:42 Pressure (ins/psv/peep) n/a 04/18/18 19:42 Critical Value abroedel 04/18/18 19:42 Sodium 145 mEq/L (136-145) 04/22/18 04:30 Potassium 3.4 mEq/L (3.5-5.1) L 04/22/18 04:30 Chloride 106 mEq/L (98-107) 04/22/18 04:30 Carbon Dioxide 27.1 mEq/L (21.0-31.0) 04/22/18 04:30 Anion Gap 15.3 (7.0-16.0) 04/22/18 04:30 BUN 38 mg/dL (7-25) H 04/22/18 04:30 Creatinine 1.0 mg/dL (0.7-1.3) 04/22/18 04:30 Est GFR ( Amer) > 60.0 ml/min (>90) 04/22/18 04:30 Est GFR (Non-Af Amer) > 60.0 ml/min 04/22/18 04:30 BUN/Creatinine Ratio 38.0 04/22/18 04:30 Glucose 177 mg/dL (70-105) H 04/22/18 04:30 POC Glucose 159 MG/DL (70 - 105) H 04/23/18 12:04 Whole Bld Lactic Acid 1.81 mmol/L (0.60-1.99) 04/18/18 21:36 Calcium 9.7 mg/dL (8.6-10.3) 04/22/18 04:30 Total Bilirubin 0.2 mg/dL (0.3-1.0) L 04/22/18 04:30 AST 16 U/L (13-39) 04/22/18 04:30 ALT 12 U/L (7-52) 04/22/18 04:30 Alkaline Phosphatase 57 U/L (34-104) 04/22/18 04:30 Troponin I 0.03 ng/mL (0.01-0.05) 04/18/18 19:45 B-Natriuretic Peptide 230.0 pg/mL (5.0-100.0) H 04/18/18 19:45 Total Protein 6.8 gm/dL (6.0-8.3) 04/22/18 04:30 Albumin 3.3 gm/dL (4.2-5.5) L 04/22/18 04:30 Globulin 3.5 gm/dL 04/22/18 04:30 Albumin/Globulin Ratio 0.9 (1.0-1.8) L 04/22/18 04:30 TSH 4.06 uIU/ml (0.34-5.60) 04/18/18 19:45 Urine Source MIDSTREAM 04/19/18 04:15 Urine Color YELLOW 04/19/18 04:15 Urine Clarity HAZY (CLEAR) 04/19/18 04:15 Urine pH 6.0 (4.6 - 8.0) 04/19/18 04:15 Ur Specific Heber 1.015 (1.005-1.030) 04/19/18 04:15 Urine Protein 100 mg/dL (NEGATIVE) H 04/19/18 04:15 Urine Glucose (UA) NEGATIVE mg/dL (NEGATIVE) 04/19/18 04:15 Urine Ketones TRACE mg/dL (NEGATIVE) 04/19/18 04:15 Urine Blood NEGATIVE (NEGATIVE) 04/19/18 04:15 Urine Nitrate NEGATIVE (NEGATIVE) 04/19/18 04:15 Urine Bilirubin NEGATIVE (NEGATIVE) 04/19/18 04:15 Urine Urobilinogen 0.2 E.U./dL (0.2 - 1.0) 04/19/18 04:15 Ur Leukocyte Esterase MODERATE (NEGATIVE) H 04/19/18 04:15 Urine RBC 0-2 /hpf (0-5) H 04/19/18 04:15 Urine WBC 25-50 /hpf (0-5) H 04/19/18 04:15 Ur Epithelial Cells FEW /lpf (FEW) 04/19/18 04:15 Urine Bacteria FEW /hpf (NONE SEEN) 04/19/18 04:15 Urine Yeast FEW /hpf (NONE SEEN) H 04/19/18 04:15 - Physical Exam Vitals and I&O: Vital Signs Temp 98 F 04/23/18 03:00 Pulse 94 04/23/18 08:34 Resp 22 04/23/18 06:39 BP 127/76 04/23/18 08:34 Pulse Ox 99 04/23/18 10:00 Intake & Output 04/22/18 04/23/18 04/23/18 18:59 06:59 18:59 Intake Total 100 1230 Output Total 850 Balance 100 380 Weight (lbs) 48.988 kg Intake: Intake, IV Amount 100 150 Levofloxacin 500mg/100mL 100 500 mg In 100 ml @ 100 mls/hr IV Q24HR [facility] Rx#: [id number] Piperacillin Sodium/ 150 Tazobact 3.375 gm In Dextrose 5% 50 ml @ 100 mls/hr IV Q6HR [facility] Rx#: [id number] Tube Feeding 930 Other 150 Output: Urine 850 Other: # Bowel Movements 4 Stool Characteristics Soft Liquid Soft Liquid Brown Brown Brown Weight Source Bedscale Active Medications: Current Medications Acetaminophen (Tylenol) 650 mg GT Q6HR PRN PRN Reason: Pain or Fever >101 Stop: 06/18/18 08:48 Last Admin: 04/23/18 00:47 Dose: 650 mg Albuterol/Ipratropium (Duoneb Neb) 3 ml HHN Q2H PRN PRN Reason: Shortness of Breath Stop: 06/18/18 08:48 Last Admin: 04/19/18 12:45 Dose: 3 ml Albuterol/Ipratropium (Duoneb Neb) 3 ml HHN Q6HRT [facility] Stop: 06/18/18 08:59 Last Admin: 04/23/18 06:39 Dose: 3 ml Baclofen (Lioresal) 5 mg GT HS [facility] Stop: 06/18/18 20:59 Last Admin: 04/22/18 20:53 Dose: 5 mg Docusate Sodium (Colace) 200 mg PO HS [facility] Stop: 06/19/18 08:59 Last Admin: 04/22/18 20:53 Dose: 200 mg Dorzolamide HCl (Trusopt 2% Ophth Soln) 1 drop EACH EYE BID [facility] Stop: 06/18/18 08:59 Last Admin: 04/23/18 08:36 Dose: 1 drop Fluconazole (Diflucan) 100 mg PO DAILY [facility] Stop: 06/20/18 14:59 Last Admin: 04/23/18 08:34 Dose: 100 mg Fluoxetine HCl (Prozac) 20 mg GT DAILY [facility]; Protocol Stop: 06/18/18 08:59 Last Admin: 04/23/18 08:35 Dose: 20 mg Folic Acid (Folate) 1 mg GT DAILY [facility] Stop: 06/18/18 08:59 Last Admin: 04/23/18 08:34 Dose: 1 mg Piperacillin Sod/Tazobactam (Sod 3.375 gm/ Dextrose) 50 mls @ 100 mls/hr IV Q6HR [facility] Stop: 06/21/18 19:59 Last Admin: 04/23/18 11:58 Dose: 100 mls/hr Insulin Aspart (Novolog Insulin Sliding Scale) 0 units SUBQ Q6HR [facility]; Protocol Stop: 06/18/18 00:00 Last Admin: 04/23/18 12:05 Dose: 2 units Lactobacillus Rhamnosus (Culturelle 15b) 1 each GT DAILY [facility] Stop: 06/19/18 08:59 Last Admin: 04/23/18 08:34 Dose: 1 each Levetiracetam (Keppra) 500 mg GT BID [facility] Stop: 06/18/18 08:59 Last Admin: 04/23/18 08:34 Dose: 500 mg Metoclopramide HCl (Reglan) 5 mg GT Q8H [facility] Stop: 06/18/18 09:59 Last Admin: 04/23/18 11:59 Dose: 5 mg Metoprolol Tartrate (Lopressor) 25 mg GT BID [facility] Stop: 06/18/18 08:59 Last Admin: 04/23/18 08:34 Dose: 25 mg Miscellaneous (Probiotic Screen) 1 ea PRN PRN PRN Reason: PROTOCOL Stop: 06/19/18 09:29 Miscellaneous (Zosyn Iv Per Pharmacy) 1 ea PRN PRN PRN Reason: PROTOCOL Stop: 06/21/18 17:59 General: no acute distress, well developed, well nourished HEENT: atraumatic, normocephalic, PERRLA Neck: supple, tracheostomy Cardiovascular: S1S2, regular Lungs: other (crackles present.) Abdomen: soft, no tender, no distended, no hepatomegaly Extremities: no cyanosis, no clubbing, no edema Neurological: awake Skin: intact Infectious Disease Assmt/Plan - Assessment Assessment: 1. Leukocytosis. Suspect sepsis. Improved. 2. Pneumonia. 3. UTI.- pseudomonas 4. Respirations insufficiency on T bar oxygen. 5. Diabetes mellitus type 2. 6. Protein calorie malnutrition. 7. Decubitus ulcer. Sacral stage II. 8. History of UTI, ESBL Escherichia coli urine infection. 9. Diabetes mellitus type 2. 10. CVA. 11. hypertension, 12. Hyperlipidemia. 13. Interstitial lung disease. 14. candiduria. - Plan Plan: Change antibiotics to cefepime x 10 days and diflucan x 5days. Nutritional Asmnt/Malnutr-PDOC - Dietary Evaluation Malnutrition Findings (Please click <Entered> for more info): Nutritional Asmnt/Malnutrition Start: 04/20/18 16: 45 Text: Status: Complete Freq: Protocol: Document 04/20/18 16:45 LCHENG (Rec: 04/20/18 17:04 [email or web address]) Nutritional Asmnt/Malnutrition Patient General Information Nutritional Screening High Risk Consult Diagnosis PNA Pertinent Medical Hx/Surgical Hx HTN, DM, CAD, CHF, Asthma/COPD , CVA/TIA, arthritis, dementia , trach placement Subjective Information Consult received for sergio 11 . Pt seen resting in bed at time of visit, trach to vent. TF was running at 50ml/hr. Per RN, pt was tolerating TF, residual 80ml this morning. Current Diet Order/ Nutrition Support vital AF 1.2 at 55ml/hr x 20hrs Pertinent Medications colace, folate, novolog, culturelle, reglan Pertinent Labs 04/19 BUN 42, Glucose 148, POC 150 04/19-04/20 POC 138-184 Nutritional Hx/Data Height 1.75 m Height (Calculated Centimeters) 175.3 Current Weight (lbs) 49.895 kg Weight (Calculated Kilograms) 49.9 Weight (Calculated Grams) 71048.2 [place] Body Weight 160 Body Mass Index (BMI) 16.2 Weight Status Underweight GI Symptoms GI Symptoms None Difficult in: None Usual diet at home glucerna 1.5 60ml/hr x 20hrs at care facility per chart Skin Integrity/Comment: abrasion to right toe and elft knee, scar to sacrum Estimated Nutritional Goals BEE in Kcals: Using Current wt Calories/Kcals/Kg 27-32 Kcals Calculated 7286-0582 Protein: Using Current wt Protein g/k.2-1.4 monitor renal labs Protein Calculated 60-70 Fluid: ml 1500-1750ml (1ml/kcal) Nutritional Problem 1. Problem Problem altered nutrition related labs Etiology hx of DM Signs/Symptoms: Glucose 148, POC 150 Intervention/Recommendation Comments 1. Continue with current TF regimen. It provides 1350kcal, 82g protein, 892ml free water , meeting 100% of nutritional needs 2. Monitor TF rate, tolerance, wt, skin integrity and labs 3. F/U as moderate risk in 3-5 days, 04/23-04/25 Expected Outcomes/Goals Expected Outcomes/Goals 1. Pt to meet at least 75% of nutritional needs via nutrition support with tolerance 2. Wt stability, skin to remain intact, labs to approach WNL.
[2018-04-24] MEDS: Albuterol/Ipratropium Neb 3 ML AERS HHN SCH ×3 (00:08→14:03)
[2018-04-24] MEDS: INSULIN ASPART SLIDING SCALE 100 UNITS/ML UNIT SUBQ SCH ×3 (01:07→12:24)
[2018-04-24] MEDS: Levetiracetam 500 mg/5mL 5mL UDSyr *for ORAL USE ONLY GT SCH (09:08)
[2018-04-24] MEDS: Lactobacillus Rhamnosus GG 15 Billion CFU CAP.SPRINK GT SCH (09:10)
--- NOTE | 2018-05-01 19:26 | Discharge Summary ---
DATE OF DISCHARGE: 04/24/2018 HOSPITAL COURSE: The patient was admitted to [facility] on 04/18/2018 and the patient was discharge to 04/24/2018. The patient is well known to me from [facility]. The patient apparently had increasing shortness of breath and increasing tachycardia, found to have a bilateral pneumonia, leukocytosis, and sepsis for which he was admitted after evaluated in the Emergency Room and the patient was treated with IV antibiotics, Pulmonary, as well as ID consult was sought and the patient improved. The patient was in stable condition on 04/24/2018 with a final diagnosis of right lower lobe pneumonia improving, history of sepsis, history of status post PEG, status post trach, cachexia, pneumonia, moderate urinary tract infection. I will be following the patient along with Pulmonary doctor at [facility]. Condition at the time of discharge is stable. JOB# [id number]
== END 2018-04-24 16:30 | DRG 871 ==
LOC: ER 19:29 → ICU 21:22
PROVIDERS: ADMIT Internal Medicine; ATTEND Internal Medicine
DX: A41.9 Sepsis, unspecified organism (principal); J18.9 Pneumonia, unspecified organism; J96.91 Respiratory failure, unspecified with hypoxia; R64 Cachexia; N39.0 Urinary tract infection, site not specified; Z68.1 Body mass index [BMI] 19.9 or less, adult; E46 Unspecified protein-calorie malnutrition; J44.0 Chronic obstructive pulmonary disease with (acute) lower respiratory infection; L89.152 Pressure ulcer of sacral region, stage 2; E78.5 Hyperlipidemia, unspecified; E11.9 Type 2 diabetes mellitus without complications; I25.10 Atherosclerotic heart disease of native coronary artery without angina pectoris; M19.90 Unspecified osteoarthritis, unspecified site; B96.5 Pseudomonas (aeruginosa) (mallei) (pseudomallei) as the cause of diseases classified elsewhere; F03.90 Unspecified dementia, unspecified severity, without behavioral disturbance, psychotic disturbance, mood disturbance, and anxiety; I11.0 Hypertensive heart disease with heart failure; I50.9 Heart failure, unspecified; E86.0 Dehydration; R13.10 Dysphagia, unspecified; Z87.440 Personal history of urinary (tract) infections; Z93.0 Tracheostomy status; Z93.1 Gastrostomy status; Z86.73 Personal history of transient ischemic attack (TIA), and cerebral infarction without residual deficits
CPT/HCPCS: 36415-UA; 36600-90; 71045-TC; 80048-TC; 80053-TC; 81001-TC; 82803-TC; 82948-90; 83605; 83880-TC; 84443-TC; 84484-TC; 85007-TC; 85025-TC; 85610-TC; 87070; 87086-90; 93005; 94640; J0456; J0692; J0696; J1815; J1956; J2185; J2543; J7030; J7040; X7704; Z7610